=== PATIENT | male | born 1965 | race Hispanic/Latino ===

== ENCOUNTER 2016-05-08 12:39 | Emergency (ER) | payer MEDICAID ==
[2016-05-08 12:45] VITALS: BP 131/87; PULSE 76; RESP 16; TEMP 98; O2SAT 97
--- NOTE | 2016-05-08 13:28 | C.PDOC ---
History Of Present Illness Pt is here requesting detox from alcohol and heroin. Time Seen by Provider: 05/08/16 13:13 Chief Complaint (Nursing): Substance Abuse History Per: Patient Onset/Duration Of Symptoms: Days Current Symptoms Are (Timing): Still Present Suicide/Self Injury Attempted (Context): None Modifying Factor(s): Alcohol, Narcotics Severity: Moderate Associated Symptoms: denies: Suicidal Thoughts, Suicidal Plan Additional History Per: Prior Records Past Medical History Reviewed: Historical Data, Nursing Documentation, Vital Signs Vital Signs: Last Vital Signs Temp 98 F 05/08/16 12:42 Pulse 76 05/08/16 12:42 Resp 16 05/08/16 12:42 BP 131/87 05/08/16 12:42 Pulse Ox 97 05/08/16 12:42 - Medical History PMH: Anxiety (PT DENIES), Arthritis, Depression (PT DENIES), HTN - [facility] Procedures DETOXIFICATION SERVICES FOR SUBSTANCE ABUSE TREATMENT (04/22/16) INDIV PSYCHOTHERAPY FOR SUBSTANCE ABUSE TREATMENT, SUPPORT (04/22/16) INDIV PSYCHOTHERAPY FOR SUBSTANCE ABUSE, COGNITIV BEHAVIORAL (04/22/16) INDIV PSYCHOTHERAPY FOR SUBSTANCE ABUSE, PSYCHOEDUCATION (04/22/16) INJECT/INFUSE NEC (12/12/13) Family History: States: Unknown Family Hx - Social History Hx Tobacco Use: No Hx Alcohol Use: Yes Hx Substance Use: Yes (Snorts heroin) - Immunization History Hx Tetanus Toxoid Vaccination: No Hx Influenza Vaccination: No Hx Pneumococcal Vaccination: No Review Of Systems Except As Marked, All Systems Reviewed And Found Negative. Constitutional: Negative for: Fever, Weakness Cardiovascular: Negative for: Chest Pain Respiratory: Negative for: Shortness of Breath, Hemoptysis Gastrointestinal: Negative for: Vomiting, Abdominal Pain Musculoskeletal: Negative for: Neck Pain Neurological: Negative for: Weakness, Numbness, Seizures Psych: Negative for: Psychosis Physical Exam - Physical Exam Appears: Non-toxic, No Acute Distress Skin: Normal Color, Warm, Dry, No Rash Head: Atraumatic, Normacephalic Eye(s): bilateral: PERRL, EOMI Neck: Normal ROM, Supple Cardiovascular: Rhythm Regular Respiratory: Normal Breath Sounds, No Accessory Muscle Use Gastrointestinal/Abdominal: Soft, No Tenderness Extremity: Normal ROM, No Deformity Neurological/Psych: Oriented x3, Normal Motor, Normal Sensation Gait: Steady ED Course And Treatment O2 Sat by Pulse Oximetry: 97 Pulse Ox Interpretation: Normal Progress Note: I was informed by the dietary worker that there are no detox beds available today and that the pt for inpt detox due to recent detox admission. Disposition Counseled Patient/Family Regarding: Diagnosis, Need For Followup - Disposition Disposition: HOME/ ROUTINE Disposition Time: 13:28 Condition: STABLE Additional Instructions: Follow up with your doctor or in the clinic. Return to the ER if you develop worsening of symptoms or if you have any other concerns. Instructions: Abuse of Alcohol (ED), Narcotic Abuse (ED) - Clinical Impression Clinical Impression: Alcohol abuse, Heroin abuse
== END 2016-05-08 13:57 | disposition home or self-care (01) ==
LOC: C.ER 12:39
DX: F11.10 Opioid abuse, uncomplicated (principal); F10.10 Alcohol abuse, uncomplicated

== ENCOUNTER 2016-06-27 15:59 | Emergency (ER) | payer MEDICAID ==
[2016-06-27 16:06] VITALS: BP 126/84; PULSE 108; TEMP 98.3; O2SAT 92
--- NOTE | 2016-06-27 16:33 | C.PDOC ---
History Of Present Illness 50-year-old male BIBA for evaluation, was found in the street appearing to be under influence of drugs/alcohol. He was given intranasal Narcan in the field, and arrives to ED awake, alert. Patient admits to snorting heroin. He c/o mild nausea, but denies other complaints. Time Seen by Provider: 06/27/16 16:12 Chief Complaint (Nursing): Substance Abuse History Per: EMS History/Exam Limitations: intoxication Current Symptoms Are (Timing): Better Modifying Factor(s): Narcotics (heroin) Severity: Moderate Past Medical History Reviewed: Historical Data, Nursing Documentation, Vital Signs Vital Signs: Last Vital Signs Temp 98.3 F 06/27/16 16:02 Pulse 108 H 06/27/16 16:02 Resp 15 06/27/16 16:44 BP 126/84 06/27/16 16:02 Pulse Ox 92 L 06/27/16 17:19 - Medical History PMH: Anxiety (PT DENIES), Arthritis, Depression (PT DENIES), HTN - [facility] Procedures DETOXIFICATION SERVICES FOR SUBSTANCE ABUSE TREATMENT (04/22/16) INDIV PSYCHOTHERAPY FOR SUBSTANCE ABUSE TREATMENT, SUPPORT (04/22/16) INDIV PSYCHOTHERAPY FOR SUBSTANCE ABUSE, COGNITIV BEHAVIORAL (04/22/16) INDIV PSYCHOTHERAPY FOR SUBSTANCE ABUSE, PSYCHOEDUCATION (04/22/16) INJECT/INFUSE NEC (12/12/13) Family History: States: No Known Family Hx - Social History Hx Tobacco Use: No Hx Alcohol Use: Yes Hx Substance Use: Yes (Snorts heroin) - Immunization History Hx Tetanus Toxoid Vaccination: No Hx Influenza Vaccination: No Hx Pneumococcal Vaccination: No Review Of Systems Except As Marked, All Systems Reviewed And Found Negative. Constitutional: Negative for: Fever Cardiovascular: Negative for: Chest Pain, Palpitations Respiratory: Negative for: Shortness of Breath Gastrointestinal: Positive for: Nausea. Negative for: Vomiting Neurological: Negative for: Dizziness Psych: Positive for: Other (heroin abuse ) Physical Exam - Physical Exam Appears: Well, Non-toxic, No Acute Distress Skin: Warm, Dry, No Rash Head: Normacephalic Eye(s): bilateral: Normal Inspection, PERRL, EOMI Oral Mucosa: Moist Lips: Normal Appearing Neck: Normal ROM Cardiovascular: Rhythm Regular Respiratory: Normal Breath Sounds, No Rales, No Rhonchi, No Wheezing Extremity: Normal ROM Extremity: Bilateral: Atraumatic, Normal Color And Temperature, Normal ROM Neurological/Psych: Oriented x3 Gait: Steady ED Course And Treatment O2 Sat by Pulse Oximetry: 92 (RA) Pulse Ox Interpretation: Normal Progress Note: PO Zofran ODT ordered. Patient had 1 episode of vomiting (after Narcan). He refused Zofran. Reevaluation Time: 16:45 Reassessment Condition: Improved (Patient currently AAOx3, ambulating normaly in the ED. Patient clinically sober at this time, will discharge home.) Disposition Counseled Patient/Family Regarding: Diagnosis, Need For Followup - Disposition Referrals: [facility] [Outside] Disposition: HOME/ ROUTINE Disposition Time: 16:45 Condition: STABLE Additional Instructions: FOLLOW UP WITH YOUR DOCTOR/CLINIC IN 1-2 DAYS AVOID HEROIN AND ALCOHOL ABUSE RETURN TO ER IF YOU HAVE ANY CONCERNING SYMPTOMS Instructions: Narcotic Abuse (ED) Print Language: BAHAMIAN - POA Present On Arrival: None - Clinical Impression Clinical Impression: Heroin use - Scribe Statement The provider has reviewed the documentation as recorded by the Mellissaibimtiaz Abreu All medical record entries made by the Scribe were at my direction and personally dictated by me. I have reviewed the chart and agree that the record accurately reflects my personal performance of the history, physical exam, medical decision making, and the department course for this patient. I have also personally directed, reviewed, and agree with the discharge instructions and disposition.
[2016-06-27 16:45] VITALS: RESP 15
== END 2016-06-27 16:44 | disposition home or self-care (01) ==
LOC: C.ER 15:59
DX: F11.90 Opioid use, unspecified, uncomplicated (principal)

== ENCOUNTER 2016-07-25 12:13 | Emergency (ER) | payer MEDICAID ==
[2016-07-25] MEDS ORDERED: Sodium Chloride 0.9% 1,000 ML IV ONE (12:27)
[2016-07-25] MEDS ORDERED: Naloxone 0.4 mg/ml Inj (Adult) IV STA (12:27)
--- NOTE | 2016-07-25 13:08 | C.PDOC ---
History Of Present Illness 50 y/o male brought in by EMS found laying on street, likely overdose. Pt known to ED with heroin overdose in the past. Unable to obtain history due to patient condition. Time Seen by Provider: 07/25/16 12:26 Chief Complaint (Nursing): Altered Mental Status History Per: EMS History/Exam Limitations: Intoxication Onset/Duration Of Symptoms: Hrs Current Symptoms Are (Timing): Still Present Usual Baseline: Unknown Exacerbating Factor(s): Drug Use Use Of Anticoag/Antiplatelets: No Severity: Moderate Recent travel outside of the [place] States: No Past Medical History Reviewed: Historical Data, Nursing Documentation, Vital Signs Vital Signs: Last Vital Signs Temp 98.2 F 07/25/16 12:25 Pulse 82 07/25/16 12:50 Resp 18 07/25/16 12:50 BP 107/66 07/25/16 12:50 Pulse Ox 97 07/25/16 13:10 - Medical History PMH: Anxiety (PT DENIES), Arthritis, HTN - [facility] Procedures DETOXIFICATION SERVICES FOR SUBSTANCE ABUSE TREATMENT (04/22/16) INDIV PSYCHOTHERAPY FOR SUBSTANCE ABUSE TREATMENT, SUPPORT (04/22/16) INDIV PSYCHOTHERAPY FOR SUBSTANCE ABUSE, COGNITIV BEHAVIORAL (04/22/16) INDIV PSYCHOTHERAPY FOR SUBSTANCE ABUSE, PSYCHOEDUCATION (04/22/16) INJECT/INFUSE NEC (12/12/13) Family History: States: Unknown Family Hx - Social History Hx Tobacco Use: No Hx Alcohol Use: Yes Hx Substance Use: Yes (Snorts heroin) Review Of Systems Review Of Systems: ROS cannot be obtained secondary to pt's inabilty to answer questions. Physical Exam - Physical Exam Appears: Non-toxic, In Acute Distress Skin: Warm, Diaphoretic Head: Atraumatic, Normacephalic Eye(s): bilateral: Other (pinpoint) Neck: Supple Chest: Symmetrical Cardiovascular: Rhythm Regular, No Murmur Respiratory: No Rales, No Rhonchi, No Wheezing, Other (rate improved with stimulition ) Gastrointestinal/Abdominal: Normal Exam, Soft, No Tenderness Extremity: Normal ROM Extremity: Bilateral: Atraumatic Neurological/Psych: Other (no focal deficit) Pain Response: Withdraws With Pain ED Course And Treatment O2 Sat by Pulse Oximetry: 97 (room air) Pulse Ox Interpretation: Normal Progress Note: Breathing rate increases with chest wall stimulation. Treated with 0.2 Narcan with marked improvement in respirations and mental status. Medical Decision Making Medical Decision Making: Post narcan continued alert Pt observed 25 minutes before he eloped from ED. Disposition - Disposition Disposition: ELOPEMENT - ER ONLY Disposition Time: 00:00 Condition: UNKNOWN - Clinical Impression Clinical Impression: Heroin abuse, Narcotic overdose - Scribe Statement The provider has reviewed the documentation as recorded by the Isabel Spencer Provider Attestation: All medical record entries made by the Isabel were at my direction and personally dictated by me. I have reviewed the chart and agree that the record accurately reflects my personal performance of the history, physical exam, medical decision making, and the department course for this patient. I have also personally directed, reviewed, and agree with the discharge instructions and disposition.
[2016-07-25 13:13] VITALS: BP 107/66; PULSE 82; RESP 18; TEMP 98.2; O2SAT 97; BMI 23.9
== END 2016-07-25 13:00 | disposition left against medical advice (07) ==
LOC: C.ER 12:13
DX: T40.1X1D Poisoning by heroin, accidental (unintentional), subsequent encounter (principal); R41.82 Altered mental status, unspecified; F11.10 Opioid abuse, uncomplicated
CPT/HCPCS: 99285; J2310; J7040

== ENCOUNTER 2017-05-21 08:40 | Inpatient (IN) | payer OTHER, MEDICAID ==
[2017-05-21 08:40] VITALS: BMI 23.9
[2017-05-21 09:55] LABS: BASO % 0.5 % (0.0-2.0); EOS # 0.1 K/uL (0.0-0.7); EOS % 1.9 % (0.0-4.0); HEMOGLOBIN 14.4 g/dL (12.0-18.0); LYMPH # 1.7 K/uL (1.0-4.3); LYMPH % 22.8 % (20.0-40.0); MEAN CELL VOLUME 95.7 fL (80.0-94.0); MEAN CORPUSCULAR HEMOGLOBIN 33.2 pg (27.0-31.0); MEAN CORPUSCULAR HGB CONC 34.7 g/dL (33.0-37.0); MEAN PLATELET VOLUME 8.9 fL (7.2-11.7); MONO # 0.8 K/uL (0.0-0.8); MONO % 10.9 % (0.0-10.0); NEUT # 4.6 K/uL (1.8-7.0); NEUT % 63.9 % (50.0-75.0); RBC 4.34 Mil/uL (4.40-5.90); RED CELL DISTRIBUTION WIDTH 13.4 % (11.5-14.5); WHITE BLOOD COUNT 7.3 K/uL (4.8-10.8)
[2017-05-21 10:11] LABS: ALBUMIN 3.8 g/dL (3.5-5.0); BLOOD UREA NITROGEN 19 mg/dL (9-20); CALCIUM 9.2 mg/dl (8.6-10.4); GFR AFRICAN-AMERICAN > 60; GFR NON-AFRICAN AMERICAN > 60
[2017-05-21 10:12] LABS: ALT/SGPT 87 U/L (21-72); AST/SGOT 75 U/L (17-59)
--- NOTE | 2017-05-21 10:55 | C.PDOC ---
History Of Present Illness 51 y/o male with history of Hep C presents to ED requesting detox from Heroin and ETOH, complaints of hip pain for 4-5 weeks. Patient states he has history of hip fracture years ago and reports last substance use was 1:30 am. Patient denies history of withdrawal seizures and denies nausea, vomiting, chest pain or any other complaints at this time. Time Seen by Provider: 05/21/17 09:18 Chief Complaint (Nursing): Substance Abuse History Per: Patient History/Exam Limitations: no limitations Onset/Duration Of Symptoms: Days Current Symptoms Are (Timing): Still Present Suicide/Self Injury Attempted (Context): None Modifying Factor(s): Alcohol Past Medical History Reviewed: Historical Data, Nursing Documentation, Vital Signs Vital Signs: Last Vital Signs Temp 97.7 F 05/21/17 08:52 Pulse 62 05/21/17 08:52 Resp 18 05/21/17 08:52 BP 123/87 05/21/17 08:52 Pulse Ox 98 05/21/17 08:52 - Medical History PMH: Anxiety (PT DENIES), Arthritis, Depression (PT DENIES), Hepatitis (C) Surgical History: No Surg Hx - [facility] Procedures DETOXIFICATION SERVICES FOR SUBSTANCE ABUSE TREATMENT (04/22/16) INDIV PSYCHOTHERAPY FOR SUBSTANCE ABUSE TREATMENT, SUPPORT (04/22/16) INDIV PSYCHOTHERAPY FOR SUBSTANCE ABUSE, COGNITIV BEHAVIORAL (04/22/16) INDIV PSYCHOTHERAPY FOR SUBSTANCE ABUSE, PSYCHOEDUCATION (04/22/16) INJECT/INFUSE NEC (12/12/13) Family History: States: No Known Family Hx - Social History Hx Tobacco Use: No Hx Alcohol Use: Yes Hx Substance Use: Yes (Snorts heroin) - Immunization History Hx Tetanus Toxoid Vaccination: No Hx Influenza Vaccination: No Hx Pneumococcal Vaccination: No Review Of Systems Constitutional: Negative for: Fever, Chills ED Course And Treatment - Laboratory Results Result Diagrams: 05/21/17 09:50 05/21/17 09:50 O2 Sat by Pulse Oximetry: 98 Disposition - Disposition
--- NOTE | 2017-05-21 10:58 | C.PDOC ---
History Of Present Illness 51 y/o male with history of Hep C presents to ED requesting detox from Heroin and ETOH. Reports last substance use was 1:30 am. Patient denies history of withdrawal seizures. Denies abdominal pain, nausea, vomiting, chest pain or sob. Doesn't not take any chronic medication. Time Seen by Provider: 05/21/17 09:18 Chief Complaint (Nursing): Substance Abuse History Per: Patient History/Exam Limitations: no limitations Onset/Duration Of Symptoms: Days Current Symptoms Are (Timing): Still Present Suicide/Self Injury Attempted (Context): None Modifying Factor(s): Alcohol Past Medical History Reviewed: Historical Data, Nursing Documentation, Vital Signs Vital Signs: Last Vital Signs Temp 98.4 F 05/21/17 14:02 Pulse 64 05/21/17 14:02 Resp 18 05/21/17 14:02 BP 123/88 05/21/17 14:02 Pulse Ox 98 05/21/17 14:02 - Medical History PMH: Anxiety (PT DENIES), Arthritis, Depression (PT DENIES), Hepatitis (C) Surgical History: No Surg Hx - [facility] Procedures DETOXIFICATION SERVICES FOR SUBSTANCE ABUSE TREATMENT (04/22/16) INDIV PSYCHOTHERAPY FOR SUBSTANCE ABUSE TREATMENT, SUPPORT (04/22/16) INDIV PSYCHOTHERAPY FOR SUBSTANCE ABUSE, COGNITIV BEHAVIORAL (04/22/16) INDIV PSYCHOTHERAPY FOR SUBSTANCE ABUSE, PSYCHOEDUCATION (04/22/16) INJECT/INFUSE NEC (12/12/13) Family History: States: No Known Family Hx - Social History Hx Tobacco Use: No Hx Alcohol Use: Yes Hx Substance Use: Yes (Snorts heroin) - Immunization History Hx Tetanus Toxoid Vaccination: No Hx Influenza Vaccination: No Hx Pneumococcal Vaccination: No Review Of Systems Constitutional: Negative for: Fever, Chills Cardiovascular: Negative for: Chest Pain Respiratory: Negative for: Shortness of Breath Gastrointestinal: Negative for: Nausea, Vomiting Psych: Negative for: Suicidal ideation, Withdrawal Physical Exam - Physical Exam Appears: Non-toxic, No Acute Distress Skin: Warm, Dry, No Rash Head: Atraumatic, Normacephalic Eye(s): bilateral: Normal Inspection, EOMI Nose: Normal Oral Mucosa: Moist Neck: Normal ROM, Supple Chest: Symmetrical Cardiovascular: Rhythm Regular Respiratory: Normal Breath Sounds, No Rales, No Rhonchi, No Wheezing Gastrointestinal/Abdominal: Soft, No Tenderness, No Guarding, No Rebound Extremity: Normal ROM, Capillary Refill (<2 seconds) Neurological/Psych: Oriented x3, Normal Speech ED Course And Treatment - Laboratory Results Result Diagrams: 05/21/17 09:50 05/21/17 09:50 O2 Sat by Pulse Oximetry: 98 (RA) Pulse Ox Interpretation: Normal Progress Note: Pt seen and evaluted by tool maintenance worker who discussed case with Dr Garcia and agreed upon admission. Disposition - Disposition Disposition: HOSPITALIZED Disposition Time: 14:00 Condition: STABLE - Clinical Impression Clinical Impression: Alcohol abuse, Opioid dependence - PA / RATINGS ANALYST / Resident Statement MD/DO has reviewed & agrees with the documentation as recorded. - Scribe Statement The provider has reviewed the documentation as recorded by the Mellissaibimtiaz Wilson All medical record entries made by the Mellissaibimtiaz were at my direction and personally dictated by me. I have reviewed the chart and agree that the record accurately reflects my personal performance of the history, physical exam, medical decision making, and the department course for this patient. I have also personally directed, reviewed, and agree with the discharge instructions and disposition.
[2017-05-21 12:16] LABS: URINE BILIRUBIN NEGATIVE (NEGATIVE); URINE BLOOD NEGATIVE (NEGATIVE); URINE CLARITY Hazy (Clear); URINE COLOR Yellow (YELLOW); URINE GLUCOSE (UA) NORMAL (Normal); URINE LEUKOCYTE ESTERASE NEG Leu/uL (Negative); URINE PROTEIN NEGATIVE (NEGATIVE); URINE URIC ACID CRYSTALS RARE /hpf (<OCC); URINE UROBILINOGEN NORMAL mg/dL (0.2-1.0)
[2017-05-21 12:36] LABS: BARBITURATES, UR NEGATIVE (NEGATIVE); BENZODIAZEPINES, UR NEGATIVE (NEGATIVE); PHENCYCLIDINE, UR NEGATIVE (NEGATIVE)
[2017-05-21 13:15] LABS: OPIATES, UR POSITIVE (NEGATIVE)
--- NOTE | 2017-05-21 14:18 | PCM.BM ---
<Sj Lezama - Last Filed: 05/21/17 14:21> Treatment Plan Problems - Problems identified on initial assessmt potential for alcohol withdrawal Date Initiated: 05/21/17 Time Initiated: 14:24 Assessment reference: NA Status: Active potential for opiate withdrawal Date Initiated: 05/21/17 Time Initiated: 14:17 Assessment reference: NA Status: Active Treatment assets and liabiliti Patient Assests: cooperative, ADL independent, negotiates basic needs, cognitively intact Patient Liabilities: substance abuse, medical problems - Milieu Protocol Maintain good personal hygiene: daily Encourage regular showers, daily Remind patient to perform daily oral care, daily Assist patient to perform ADL's Conduct patient checks and document Observation sheet: Q15 minutes Maintain personal safety: every other day Educate patient to report safety concerns to staff, every other day Monitor environment for contraband/sharps Medication safety: Monitor for expected outcome, potential side effects: daily, Assess barriers to learning: daily, Assess readiness for medication education: every other day <Yary Garcia - Last Filed: 05/21/17 23:56> Treatment Plan Problems - Problems identified on initial assessmt potential for alcohol withdrawal Date Initiated: 05/21/17 Time Initiated: 14:24 Assessment reference: NA Status: Active potential for opiate withdrawal Date Initiated: 05/21/17 Time Initiated: 14:17 Assessment reference: NA Status: Active Problem 2 Date Initiated: 05/21/17 Time Initiated: 14:17 Assessment reference: NA Problem 1 Date Initiated: 05/21/17 Time Initiated: 14:20 Assessment reference: NA potential foe opiate withdrawal\\ Date Initiated: 05/21/17 Time Initiated: 14:17 Assessment reference: NA Status: Active - Diagnosis (1) Alcohol use disorder, severe, dependence Status: Acute Interventions: 05/21/17 23:56 * Assess 7x/week regarding severity of withdrawal * Educate regarding risks, benefits, side effects and alternatives of medications * Use Motivational Interviewing for abstinence * Use CBT for relapse prevention * Medication management for withdrawal symptoms * Encourage medication assisted treatment * (2) Opioid dependence Status: Acute Interventions: 05/21/17 23:56 * Assess 7x/week regarding severity of withdrawal * Educate regarding risks, benefits, side effects and alternatives of medications * Use Motivational Interviewing for abstinence * Use CBT for relapse prevention * Medication management for withdrawal symptoms * Encourage medication assisted treatment * Treatment Plan Review - Problem potential for alcohol withdrawal Time Initiated: 14:24 potential for opiate withdrawal Time Initiated: 14:17 Problem 2 Time Initiated: 14:17 Problem 1 Time Initiated: 14:20 potential foe opiate withdrawal\\ Time Initiated: 14:17 <Kaycee Rangel - Last Filed: 05/23/17 08:31> Family Contact Family involvement: No known Family/SO - Goals for Treatment Patient goals for treatment: Complete detox and discuss aftercare options with counseling staff. Discharge/Continuing Care - Education Needs Education Needs: Patient Medication, Patient Diagnosis/Disease Process, Patient Coping Skills, Patient Anger Management skills, Patient Placement options, Patient Community resources - Discharge Discharge Criteria: No longer exhibiting s/s of withdrawal, Reduction of target symptoms Discharge to:: Home - Treatment Team Participation Patient/Family/SO Statement: 05/23/17 08:30 "I'll consider my options but I don't know what I wanna do after this..." Discussed with Family/SO: No Was Patient/Family/SO present at Treatment Team Meeting: Yes
[2017-05-21] MEDS ORDERED: Pneumococcal 23-Valent Vaccine IM ONE (15:15)
--- NOTE | 2017-05-21 15:25 | PCM.PSYCH ---
Initial Psychiatric Evaluation - Initial Psychiatric Evaluation Type of Admission: Voluntary Legal Status: Capacity Chief Complaint (in patient's own words): "Heroin" History of Present Illness and Precipitating Events: The pt is a 51 y/o WM, single with one adult daughter, laid off recently, stays with his friends He says he is here for alcohol and heroin detox. He uses 15-20 bags heroin intranasally, x30+ years. He also drinks 4-5 beers but 24 oz each and 1/2 pint whiskey. He decreased but relapsed few weeks ago. He used methadone in the past, was in detox 4-5 times but no rehab He also uses cocaine and MJ occasionally, smokes 1 ppd cigarettes. Past psych hx: Denies Medical hx: Hep C, penil wart family psych hx: Unknown Current Medications: Active Medications Generic Name Dose Route Start Last Admin Trade Name Freq PRN Reason Stop Dose Admin Chlordiazepoxide 25 mg 05/21/17 15:10 Librium PO Q4H PRN Alcohol Withdrawal Chlordiazepoxide 25 mg 05/21/17 18:00 Librium PO 05/26/17 17:59 Q6 DIEGO Taper Clonidine HCl 0.1 mg 05/21/17 15:10 Catapres PO Q4H PRN Symptoms of alcohol withdrawl Folic Acid 1 mg 05/21/17 15:15 Folic Acid PO DAILY DIEGO Gabapentin 300 mg 05/21/17 18:00 Neurontin PO BID DIEGO Hydroxyzine HCl 50 mg 05/21/17 15:14 Atarax PO Q6H PRN Anxiety Ibuprofen 600 mg 05/21/17 15:14 Motrin Tab PO Q6H PRN Pain, moderate (4-7) Multivitamins 1 tab 05/21/17 15:15 Hexavitamin PO DAILY [facility] Pneumococcal Polyvalent Vaccine 0.5 ml 05/21/17 15:15 Pneumovax 23 Vaccine IM 05/21/17 15:16 .ONCE ONE Thiamine HCl 100 mg 05/21/17 15:15 Vitamin B1 Tab PO DAILY DIEGO Trazodone HCl 100 mg 05/21/17 15:10 Desyrel PO HS PRN Insomnia Past Psychiatric History - Past Psychiatric History Previous Treatment History: None Pertinent Medical Hx (Current Medical&Sleep Prob, Allergies): Allergies Allergy/AdvReac Type Severity Reaction Status Date / Time No Known Allergies Allergy Verified 04/22/17 19:29 No Known Home Med 05/08/16 Review of Systems - Psychiatric Psychiatric: Abnormal Sleep Pattern, Anxiety. absent: Depression, Homicidal Ideation, Paranoia, Suicidal Ideation Mental Status Examination - Personal Presentation Personal Presentation: Looks older than stated age - Affect Affect: Constricted - Motor Activity Motor Activity: Calm - Reliability in Providing Information Reliability in Providing Information: Good - Speech Speech: Organized - Mood Mood: Anxious - Formal Thought Process Formal Thought Process: No Impairment - Cognitive Functions Orientation: Person, Place, Situation, Time Attention/Concentration: Easily distracted Estimate of Intelligence: Average Judgement: Intact, as evidence by: Insight regarding need for hospitalization Memory: Recent intact, as evidence by: Ability to recall events of the day, Remote intact, as evidenced by: Abilit to recall sig. life events - Risk Risk: Withdrawal, Diminished functioning - Strength & Assets Inventory Strength & Assets Inventory: Cooperative - Limitations Limitations: Living alone DSM 5 DX - DSM 5 DSM 5 Diagnosis: Opioid withdrawal Opioid use d/o -severe Alcohol use d/o - severe Alcohol withdrawal uncmlicated Cocaine use d/o - moderate Cannabis use d/o - moderat Tobacco use d/o - severe - Recommended/Plan of Treatment Treatment Recommendations and Plan of Treatment: Methadone detox Librium detox As needed medications Gabapentin for augmentation if needed All risks, benefits and alternatives of medications, including no medications, discussed and the patient understood and agreed. Attend groups and activities Supportive therapy and psychoeducation [place] for abstinence CBT for relapse prevention Encourage MAT Refer to rehab or IOP Attend self-help groups as well [place] for smoking cessation and patch if needed 34 min Projected ELOS: 4-5 days Prognosis: good w treatment - Smoking Cessation Smoking Cessation Initiated: Yes
[2017-05-21] MEDS: Multiple Vitamins Tab PO SCH (15:54)
[2017-05-22] MEDS: Multiple Vitamins Tab PO SCH (10:09)
--- NOTE | 2017-05-22 15:10 | PCM.PYCHPN ---
Psychiatric Progress Note - Psychiatric Progress Note Patient seen today, length of contact: 15 min Patient Chief Complaint: "Not well" Problems Identified/Issues Discussed: The pt is seen, chart reviewed, case discussed with staff. Support given, CBT and [place] used briefly No new symptoms reported, improving slowly and needs more time No SEs from medications, risks discussed. After care discussed - he is undecided and somewhat unmotivated. He likes to badmouth about MAT Medication Change: Yes (detox changes daily) Medical Record Reviewed: Yes Mental Status Examination - Cognitive Function Orientation: Person, Place, Situation, Time Memory: Intact Attention: WNL Concentration: Poor Association: WNL Fund of Knowledge: WNL - Mood Mood: Anxious - Affect Affect: Constricted - Speech Speech: Appropriate - Formal Thought Process Formal Thought Process: No Impairment - Suicidal Ideation Suicidal Ideation: No - Homicidal Ideation Homicidal Ideation: No Goal/Treatment Plan - Goal/Treatment Plan Need for Continued Stay: Discharge may exacerbated symptoms, Severe functional impairment Progress Toward Problem(s) and Goals/Treatment Plan: Methadone detox Librium detox As needed medications Gabapentin for augmentation if needed All risks, benefits and alternatives of medications, including no medications, discussed and the patient understood and agreed. Attend groups and activities Supportive therapy and psychoeducation [place] for abstinence CBT for relapse prevention Encourage MAT Refer to rehab or IOP Attend self-help groups as well [place] for smoking cessation and patch if needed
[2017-05-23] MEDS: Multiple Vitamins Tab PO SCH (09:19)
[2017-05-23] MEDS ORDERED: Pneumococcal 23-Valent Vaccine IM ONE (10:00)
--- NOTE | 2017-05-23 13:47 | PCM.PYCHPN ---
Psychiatric Progress Note - Psychiatric Progress Note Patient seen today, length of contact: 15 min Patient Chief Complaint: "Still no good" Problems Identified/Issues Discussed: The pt is seen, chart reviewed, case discussed with staff. Support given, CBT and [place] used briefly No new symptoms reported, but he complains a lot w/o concrete sxs Improving slowly and needs more time.M Extra dose given No SEs from medications, risks discussed. After care discussed Medication Change: Yes (detox changes daily) Medical Record Reviewed: Yes Mental Status Examination - Cognitive Function Orientation: Person, Place, Situation, Time Memory: Intact Attention: WNL Concentration: Poor Association: WNL Fund of Knowledge: WNL - Mood Mood: Anxious - Affect Affect: Constricted - Speech Speech: Appropriate - Formal Thought Process Formal Thought Process: No Impairment - Suicidal Ideation Suicidal Ideation: No - Homicidal Ideation Homicidal Ideation: No Goal/Treatment Plan - Goal/Treatment Plan Need for Continued Stay: Discharge may exacerbated symptoms, Severe functional impairment Progress Toward Problem(s) and Goals/Treatment Plan: Methadone detox Librium detox As needed medications Gabapentin for augmentation if needed All risks, benefits and alternatives of medications, including no medications, discussed and the patient understood and agreed. Attend groups and activities Supportive therapy and psychoeducation [place] for abstinence CBT for relapse prevention Encourage MAT Refer to rehab or IOP Attend self-help groups as well [place] for smoking cessation and patch if needed
[2017-05-24] MEDS: Multiple Vitamins Tab PO SCH (09:36)
--- NOTE | 2017-05-24 22:13 | PCM.PYCHPN ---
Psychiatric Progress Note - Psychiatric Progress Note Patient seen today, length of contact: 16 min Patient Chief Complaint: "Some pain" Problems Identified/Issues Discussed: The pt is seen, chart reviewed, case discussed with staff. The pt is compliant with medications and reports no side-effects. Symptoms are improving slowly but needs more time to stabilize. After care discussed, support and psychoeducation given. Medication Change: Yes (detox changes daily) Medical Record Reviewed: Yes Mental Status Examination - Cognitive Function Orientation: Person, Place, Situation, Time Memory: Intact Attention: WNL Concentration: Poor Association: WNL Fund of Knowledge: WNL - Mood Mood: Anxious - Affect Affect: Constricted - Speech Speech: Appropriate - Formal Thought Process Formal Thought Process: No Impairment - Suicidal Ideation Suicidal Ideation: No - Homicidal Ideation Homicidal Ideation: No Goal/Treatment Plan - Goal/Treatment Plan Need for Continued Stay: Discharge may exacerbated symptoms, Severe functional impairment Progress Toward Problem(s) and Goals/Treatment Plan: Methadone detox Librium detox As needed medications Gabapentin for augmentation if needed All risks, benefits and alternatives of medications, including no medications, discussed and the patient understood and agreed. Attend groups and activities Supportive therapy and psychoeducation [place] for abstinence CBT for relapse prevention Encourage MAT Refer to rehab or IOP Attend self-help groups as well [place] for smoking cessation and patch if needed
[2017-05-25 02:43] VITALS: O2SAT 98
--- NOTE | 2017-05-25 08:41 | PCM.PYCHDC ---
Mental Status Examination - Mental Status Examination Orientation: Person Discharge Summary - Discharge Note Consultations:: List each consultation separately and include: 1. Reason for request. 2. Findings. 3. Follow-up Summary of Hospital Course include:: 1. Description of specific treatment plan utilized for patients during their course of treatmen. 2. Summarize the time- course for resolution of acute symptoms and/or regressed behaviors. 3. Describe issues identified and worked on during hospitalization. 4. Describe medication utilized. 5. Describe medical problems identified and treated. 6. Reassessment of suicide risk Summary of Hospital Course: The pt is a 51 y/o WM, single with one adult daughter, laid off recently, stays with his friends He says he is here for alcohol and heroin detox. He uses 15-20 bags heroin intranasally, x30+ years. He also drinks 4-5 beers but 24 oz each and 1/2 pint whiskey. He decreased but relapsed few weeks ago. He used methadone in the past, was in detox 4-5 times but no rehab He also uses cocaine and MJ occasionally, smokes 1 ppd cigarettes. Past psych hx: Denies Medical hx: Hep C, penil wart family psych hx: Unknown The pt was uncooperative and unmotivated. He only agreed to try "meetings," and all risks of poor after care discussed. - Diagnosis (1) Alcohol use disorder, severe, dependence Current Visit: Yes Status: Acute (2) Opioid dependence Current Visit: Yes Status: Acute - Final Diagnosis (DSM 5) Condition upon Discharge: STABLE Disposition: HOME/ ROUTINE Follow-up Treatment Plan: Methadone detox Librium detox As needed medications Gabapentin for augmentation if needed All risks, benefits and alternatives of medications, including no medications, discussed and the patient understood and agreed. Attend groups and activities Supportive therapy and psychoeducation [place] for abstinence CBT for relapse prevention Encourage MAT Refer to rehab or IOP Attend self-help groups as well [place] for smoking cessation and patch if needed Prescriptions/Medication Reconciliation: Gabapentin [Neurontin] 300 mg PO BID #60 cap hydrOXYzine HCl [Atarax] 50 mg PO BID PRN #60 tab PRN Reason: Anxiety QUEtiapine [SEROquel] 50 mg PO HS #30 tab
[2017-05-25] MEDS: Multiple Vitamins Tab PO SCH (09:32)
[2017-05-25 10:13] VITALS: BP 100/72; PULSE 96; RESP 20; TEMP 97.5
== END 2017-05-25 10:15 | disposition home or self-care (01) | DRG 897 ==
LOC: C.ER 08:40 → C.7D 13:39
PROVIDERS: ADMIT Psychiatry & Neurology Psychiatry; ATTEND Psychiatry & Neurology Psychiatry
PROC: HZ2ZZZZ Detoxification Services for Substance Abuse Treatment (ICD-10-PCS; principal; 2017-05-21)
DX: F11.23 Opioid dependence with withdrawal (principal); F14.90 Cocaine use, unspecified, uncomplicated; F10.239 Alcohol dependence with withdrawal, unspecified; Y90.9 Presence of alcohol in blood, level not specified; F12.90 Cannabis use, unspecified, uncomplicated; Z72.0 Tobacco use

== ENCOUNTER 2017-10-01 16:17 | Emergency (ER) | payer OTHER ==
[2017-10-01 16:18] VITALS: BMI 25.7
[2017-10-01 16:28] VITALS: BP 107/78; PULSE 87; RESP 16; TEMP 97.8; O2SAT 98
--- NOTE | 2017-10-01 16:48 | C.PDOC ---
History Of Present Illness 52 year old male presents to the ED requesting medication for heroin withdrawal. Patient states his last use was yesterday. Patient is currently asymptomatic. Patient denies SI/HI, hallucinations, injury, fall, trauma. REQUESTING RX FOR HEROIN WITHDRAWAL. LAST USE YEST. CURRENTLY ASYMPT EXAM MILD DIST NONTOXIC PSYCH CALM COOPERATIVE NO ACUTE INTOX. MILD WITHDRAWAL NO SI/SA REMAIDNER NEG Time Seen by Provider: 10/01/17 16:36 Chief Complaint (Nursing): Substance Abuse History Per: Patient History/Exam Limitations: no limitations Onset/Duration Of Symptoms: Hrs Current Symptoms Are (Timing): Still Present Suicide/Self Injury Attempted (Context): None Modifying Factor(s): Other (Heroin) Associated Symptoms: denies: Depression, Suicidal Thoughts, Suicidal Plan Recent travel outside of the [place]: No Additional History Per: Patient Past Medical History Reviewed: Historical Data, Nursing Documentation, Vital Signs Vital Signs: Last Vital Signs Temp 97.8 F 10/01/17 16:25 Pulse 87 10/01/17 16:25 Resp 16 10/01/17 16:25 BP 107/78 10/01/17 16:25 Pulse Ox 98 10/01/17 16:50 - Medical History PMH: Anxiety (PT DENIES), Arthritis, Depression (PT DENIES), Hepatitis (C) Denies: Diabetes, HIV, HTN, Seizures, Sexually Transmitted Disease Surgical History: No Surg Hx - [facility] Procedures DETOXIFICATION SERVICES FOR SUBSTANCE ABUSE TREATMENT (05/21/17) INDIV PSYCHOTHERAPY FOR SUBSTANCE ABUSE TREATMENT, SUPPORT (04/22/16) INDIV PSYCHOTHERAPY FOR SUBSTANCE ABUSE, COGNITIV BEHAVIORAL (04/22/16) INDIV PSYCHOTHERAPY FOR SUBSTANCE ABUSE, PSYCHOEDUCATION (04/22/16) INJECT/INFUSE NEC (12/12/13) Family History: States: Unknown Family Hx - Social History Hx Tobacco Use: No Hx Alcohol Use: Yes Hx Substance Use: Yes - Immunization History Hx Tetanus Toxoid Vaccination: No Hx Influenza Vaccination: No Hx Pneumococcal Vaccination: No Review Of Systems Constitutional: Negative for: Fever, Chills Cardiovascular: Negative for: Chest Pain Respiratory: Negative for: Cough, Shortness of Breath Gastrointestinal: Negative for: Nausea, Vomiting, Abdominal Pain Neurological: Negative for: Weakness, Numbness Psych: Negative for: Depression, Suicidal ideation Physical Exam - Physical Exam Appears: Non-toxic, In Acute Distress Skin: Normal Color, Warm, Dry Head: Atraumatic, Normacephalic Eye(s): bilateral: Normal Inspection Neck: Normal ROM, Supple Chest: Symmetrical Cardiovascular: Rhythm Regular Respiratory: Normal Breath Sounds, No Rales, No Rhonchi, No Wheezing Extremity: Normal ROM, No Tenderness, No Swelling Neurological/Psych: Oriented x3, Normal Speech, Other (calm, cooperative, no acute intoxication, mild withdrawal. 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 OUTPT INFO GIVEN Medical Decision Making Medical Decision Making: Plan: * Zofran 4 mg PO * Clonidine 2 patch TD Patient was told to remove patch after 1 week., Given outpatient detox information Disposition Counseled Patient/Family Regarding: Diagnosis, Need For Followup, Rx Given - Disposition Referrals: [facility] [Outside] [facility] [Outside] Disposition: HOME/ ROUTINE Disposition Time: 16:44 Condition: IMPROVED Prescriptions: Acetaminophen [Tylenol Extra Strength] 2 tab PO Q6 #30 tablet Ibuprofen [Motrin] 600 mg PO Q6 #30 tab Ondansetron [Zofran Odt] 4 mg PO TID PRN #9 odt PRN Reason: Nausea/Vomiting Instructions: Drug Abuse and Drug Addiction (DC) Forms: [employer] (Lithuanian) - Clinical Impression Clinical Impression: Opioid abuse, Opioid dependence, Opiate withdrawal - Scribe Statement The provider has reviewed the documentation as recorded by the Scribe Shimon Martin All medical record entries made by the Scribe were at my direction and personally dictated by me. I have reviewed the chart and agree that the record accurately reflects my personal performance of the history, physical exam, medical decision making, and the department course for this patient. I have also personally directed, reviewed, and agree with the discharge instructions and disposition.
== END 2017-10-01 17:07 | disposition home or self-care (01) ==
LOC: C.ER 16:17
DX: F11.23 Opioid dependence with withdrawal (principal)

== ENCOUNTER 2017-10-09 04:40 | Inpatient (IN) | payer OTHER ==
[2017-10-09 04:41] VITALS: BMI 25.7
--- NOTE | 2017-10-09 04:55 | C.PDOC ---
History Of Present Illness 52 year old male presents to the ED for evaluation of feeling depressed. Patient had expressed some thoughts about hurting himself. Patient also using heroin and states he has not used in the last couple of hours. Patient denies SI /HI, hallucinations, CP, SOB, other complaints. Time Seen by Provider: 10/09/17 04:55 Chief Complaint (Nursing): Psychiatric Evaluation History Per: Patient History/Exam Limitations: no limitations Onset/Duration Of Symptoms: Hrs Current Symptoms Are (Timing): Still Present Suicide/Self Injury Attempted (Context): None Modifying Factor(s): Other (Heroin) Associated Symptoms: Depression. denies: Suicidal Thoughts, Suicidal Plan Recent travel outside of the [place]: No Additional History Per: Patient Past Medical History Reviewed: Historical Data, Nursing Documentation, Vital Signs Vital Signs: Last Vital Signs Temp 98.5 F 10/09/17 04:49 Pulse 60 10/09/17 04:49 Resp 20 10/09/17 04:49 BP 111/74 10/09/17 04:49 Pulse Ox 97 10/09/17 05:35 - Medical History PMH: Anxiety, Arthritis, Depression, Hepatitis (C), HIV Denies: Diabetes, HTN, Seizures, Sexually Transmitted Disease Surgical History: No Surg Hx - [facility] Procedures DETOXIFICATION SERVICES FOR SUBSTANCE ABUSE TREATMENT (05/21/17) INDIV PSYCHOTHERAPY FOR SUBSTANCE ABUSE TREATMENT, SUPPORT (04/22/16) INDIV PSYCHOTHERAPY FOR SUBSTANCE ABUSE, COGNITIV BEHAVIORAL (04/22/16) INDIV PSYCHOTHERAPY FOR SUBSTANCE ABUSE, PSYCHOEDUCATION (04/22/16) INJECT/INFUSE NEC (12/12/13) Family History: States: Unknown Family Hx - Social History Hx Tobacco Use: No Hx Alcohol Use: Yes Hx Substance Use: Yes - Immunization History Hx Tetanus Toxoid Vaccination: No Hx Influenza Vaccination: No Hx Pneumococcal Vaccination: No Review Of Systems Constitutional: Negative for: Fever, Chills Cardiovascular: Negative for: Chest Pain Respiratory: Negative for: Shortness of Breath Gastrointestinal: Negative for: Nausea, Vomiting, Abdominal Pain Skin: Negative for: Rash Psych: Positive for: Depression. Negative for: Suicidal ideation Physical Exam - Physical Exam Appears: Non-toxic, No Acute Distress Skin: Warm, Dry Head: Normacephalic Eye(s): bilateral: Normal Inspection Neck: Supple Chest: Symmetrical Cardiovascular: Rhythm Regular Respiratory: No Rales, No Rhonchi, No Wheezing Gastrointestinal/Abdominal: Soft, No Tenderness, No Guarding, No Rebound Extremity: No Tenderness, No Swelling Extremity: Bilateral: Atraumatic, Normal Color And Temperature, Normal ROM Neurological/Psych: Oriented x3, Normal Speech Gait: Steady ED Course And Treatment - Laboratory Results Result Diagrams: 10/09/17 05:26 10/09/17 05:26 O2 Sat by Pulse Oximetry: 97 (ON RA) Pulse Ox Interpretation: Normal Progress Note: Plan: - Labs. - Ua. - Crisis Disposition Discussed With Dr.: Suzie Marsh Comment: accepted the pt on his service and took over the care at 6:27AM Doctor Will See Patient In The: Hospital Counseled Patient/Family Regarding: Studies Performed, Diagnosis - Disposition Disposition: HOSPITALIZED Disposition Time: 04:55 Condition: FAIR Forms: [facility] (Swedish) - POA Present On Arrival: Poor Glycemic Control - Clinical Impression Clinical Impression: Opioid abuse - Scribe Statement The provider has reviewed the documentation as recorded by the Scribe Shimon Martin All medical record entries made by the Scribe were at my direction and personally dictated by me. I have reviewed the chart and agree that the record accurately reflects my personal performance of the history, physical exam, medical decision making, and the department course for this patient. I have also personally directed, reviewed, and agree with the discharge instructions and disposition. Decision To Admit - Pt Status Changed To: Hospital Disposition Of: Inpatient - Admit Certification Admit to Inpatient:: After my assessment, the patient will require hospitalization for at least two midnights. This is because of the severity of symptoms shown, intensity of services needed, and/or the medical risk in this patient being treated as an outpatient. - InPatient: Physician Admission Certification: I certify that this patient requires 2 or more midnights of care for the following reason:: After my assessment, the patient will require hospitalization for at least two midnights. This is because of the severity of symptoms shown, intensity of services needed, and/or the medical risk in this patient being treated as an outpatient. - . Bed Request Type: Detox Admitting Physician: Suzie Marsh Patient Diagnosis: Opioid abuse
[2017-10-09 05:39] LABS: BASO % 0.8 % (0.0-2.0); EOS # 0.2 K/uL (0.0-0.7); EOS % 3.5 % (0.0-4.0); HEMOGLOBIN 14.4 g/dL (12.0-18.0); MEAN CELL VOLUME 94.1 fL (80.0-94.0); MEAN CORPUSCULAR HEMOGLOBIN 32.3 pg (27.0-31.0); MEAN CORPUSCULAR HGB CONC 34.3 g/dL (33.0-37.0); MEAN PLATELET VOLUME 9.6 fL (7.2-11.7); MONO # 0.6 K/uL (0.0-0.8); MONO % 10.4 % (0.0-10.0); NEUT # 2.9 K/uL (1.8-7.0); NEUT % 50.3 % (50.0-75.0); NRBC % 0.1 % (0.0-2.0); RBC 4.46 Mil/uL (4.40-5.90); RED CELL DISTRIBUTION WIDTH 13.7 % (11.5-14.5); WHITE BLOOD COUNT 5.8 K/uL (4.8-10.8)
[2017-10-09 05:54] LABS: URINE BILIRUBIN NEGATIVE (NEGATIVE); URINE BLOOD NEGATIVE (NEGATIVE); URINE CLARITY Clear (Clear); URINE COLOR Yellow (YELLOW); URINE GLUCOSE (UA) NORMAL (Normal); URINE LEUKOCYTE ESTERASE NEG Leu/uL (Negative); URINE PROTEIN NEGATIVE (NEGATIVE)
[2017-10-09 05:57] LABS: ALB/GLOB RATIO 1.2 (1.0-2.1); ALBUMIN 3.9 g/dL (3.5-5.0); ALT/SGPT 140 U/L (21-72); AST/SGOT 114 U/L (17-59); BLOOD UREA NITROGEN 6 mg/dL (9-20); CALCIUM 9.5 mg/dl (8.6-10.4); GFR NON-AFRICAN AMERICAN > 60
[2017-10-09 06:06] LABS: BARBITURATES, UR NEGATIVE (NEGATIVE); PHENCYCLIDINE, UR NEGATIVE (NEGATIVE)
[2017-10-09 06:12] LABS: BENZODIAZEPINES, UR POSITIVE (NEGATIVE); OPIATES, UR POSITIVE (NEGATIVE)
--- NOTE | 2017-10-09 07:42 | PCM.BM ---
<Samira Medrano - Last Filed: 10/09/17 07:40> Treatment Plan Problems - Problems identified on initial assessmt potential for opiate withdrawals Date Initiated: 10/09/17 Assessment reference: NA Status: Active potential for alcohol withdrawals Date Initiated: 10/09/17 Assessment reference: NA Status: Active Treatment assets and liabiliti Patient Assests: cooperative, motivated, ADL independent, negotiates basic needs , cognitively intact Patient Liabilities: financial problems, substance abuse - Milieu Protocol Maintain good personal hygiene: daily Encourage regular showers, daily Remind patient to perform daily oral care, daily Assist patient to perform ADL's Conduct patient checks and document Observation sheet: Q15 minutes Maintain personal safety: every shift Educate patient to report safety concerns to staff, every shift Monitor environment for contraband/sharps Medication safety: Monitor for expected outcome, potential side effects: every shift, Assess barriers to learning: every shift, Assess readiness for medication education: every shift <Yary Garcia - Last Filed: 10/09/17 10:35> - Diagnosis (1) Alcohol use disorder, severe, dependence Status: Acute Interventions: 10/09/17 10:36 * Assess 7x/week regarding severity of withdrawal * Educate regarding risks, benefits, side effects and alternatives of medications * Use Motivational Interviewing for abstinence * Use CBT for relapse prevention * Medication management for withdrawal symptoms * Encourage medication assisted treatment * (2) Opioid dependence Status: Acute Interventions: 10/09/17 10:36 * Assess 7x/week regarding severity of withdrawal * Educate regarding risks, benefits, side effects and alternatives of medications * Use Motivational Interviewing for abstinence * Use CBT for relapse prevention * Medication management for withdrawal symptoms * Encourage medication assisted treatment * <Kaycee Rangel - Last Filed: 10/09/17 10:59> Family Contact Family involvement: Famliy/SO not involved - Goals for Treatment Patient goals for treatment: Complete detox and discuss aftercare options with counseling staff, Discharge/Continuing Care - Education Needs Education Needs: Patient Medication, Patient Diagnosis/Disease Process, Patient Coping Skills, Patient Anger Management skills, Patient Placement options, Patient Community resources - Discharge Discharge Criteria: No longer exhibiting s/s of withdrawal, Reduction of target symptoms Discharge to:: Other - Additional Comments 10/09/17 10:59 TBD aftercare. Pt. unsure at this point. - Treatment Team Participation Discussed with Family/SO: No Was Patient/Family/SO present at Treatment Team Meeting: Yes
[2017-10-09] MEDS ORDERED: Aluminum Hydroxide/Magnesium Hydroxide Susp (30 mL) PO PRN (08:43)
[2017-10-09] MEDS: Multiple Vitamins Tab PO SCH (09:06)
--- NOTE | 2017-10-09 10:35 | PCM.PSYCH ---
Initial Psychiatric Evaluation - Initial Psychiatric Evaluation Type of Admission: Voluntary Legal Status: Capacity Chief Complaint (in patient's own words): "Need detox, need to stop this" History of Present Illness and Precipitating Events: Pt is a 52 year old, male. He is single, has a daughter, and lives with 2 roommates in [place]. 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 Chart reviewed. Case discussed. Pt is presenting for opioid and EtOH detoxification. He states that he snorts 15 -20 bags of heroin. The last time he used heroin was yesterday morning. He has been using heroin since he was 17 years old. He underwent detoxification for this in May. Upon leaving he maintained sobriety for a week but relapsed. He did not go to any rehab because he said he had no desire for it, then. For EtOH abuse, he drinks between 2-6 packs of beers/day, and he has a bottle of whiskey few times per week on average. The last time he drank beer was yesterday. He has been drinking alcohol since around the age of 13. He also underwent detoxification before at the same time as opioid detoxification, and maintained sobriety only for a week. Pt is more ambivalent about alcohol. He smokes cigarettes, about 1 pack/day. He denies marijuana or other drugs. Pt reports feeling persistent headaches, cough nausea, vomiting, diarrhea, and widespread body aches. Denies fever, LOC, dizziness, chest pain, SOB, constipation, and numbness, tingling, or abnormal sensation. Psych Hx: He denies any manic episodes. He denies hearing voices. He denies SI/ HI. He denies any traumatic history. Family Psych Hx: Unremarkable Medical Hx: Unremarkable Legal Hx: Unremarkable Current Medications: Active Medications Generic Name Dose Route Start Last Admin Trade Name Freq PRN Reason Stop Dose Admin Al Hydrox/Mg Hydrox/Simethicone 30 ml 10/09/17 08:43 Maalox 30 Ml PO TID PRN Indigestion / Heartburn Clonidine HCl 0.1 mg 10/09/17 08:42 Catapres PO Q4H PRN Symptoms of alcohol withdrawl Folic Acid 1 mg 10/09/17 10:00 10/09/17 09:06 Folic Acid PO 1 mg DAILY DIEGO Administration Loperamide HCl 2 mg 10/09/17 08:43 Imodium PO Q8 PRN Diarrhea Lorazepam 1 mg 10/09/17 08:42 Ativan PO Q4H PRN Symptoms of alcohol withdrawl Lorazepam 2 mg 10/09/17 10:00 10/09/17 10:21 Ativan PO 10/14/17 09:59 2 mg Q6H DIEGO Administration Taper Multivitamins 1 tab 10/09/17 10:00 10/09/17 09:06 Hexavitamin PO 1 tab DAILY DIEGO Administration Ondansetron HCl 4 mg 10/09/17 08:43 Zofran Tab PO Q8 PRN Nausea/Vomiting Thiamine HCl 100 mg 10/09/17 10:00 10/09/17 09:06 Vitamin B1 Tab PO 100 mg DAILY DIEGO Administration Trazodone HCl 50 mg 10/09/17 22:00 Desyrel PO HS PRN Insomnia Past Psychiatric History - Past Psychiatric History Previous Treatment History: None Pertinent Medical Hx (Current Medical&Sleep Prob, Allergies): Allergies Allergy/AdvReac Type Severity Reaction Status Date / Time No Known Allergies Allergy Verified 10/09/17 04:52 No Known Home Med 10/09/17 Review of Systems - Psychiatric Psychiatric: Abnormal Sleep Pattern, Anxiety, Difficulty Concentrating, Irritability, Mood Swings. absent: Hallucinations, Homicidal Ideation, Paranoia , Suicidal Ideation Mental Status Examination - Personal Presentation Personal Presentation: Looks older than stated age - Affect Affect: Constricted - Motor Activity Motor Activity: Calm - Reliability in Providing Information Reliability in Providing Information: Good - Speech Speech: Organized - Mood Mood: Anxious - Formal Thought Process Formal Thought Process: No Impairment - Cognitive Functions Orientation: Person, Place, Situation, Time Sensorium: Alert Attention/Concentration: Easily distracted Estimate of Intelligence: Average Judgement: Intact, as evidence by: Insight regarding need for hospitalization Memory: Recent intact, as evidence by: Ability to recall events of the day, Remote intact, as evidenced by: Ability to recall historical events - Risk Risk: Withdrawal, Diminished functioning - Strength & Assets Inventory Strength & Assets Inventory: Cooperative - Limitations Limitations: Living alone DSM 5 DX - DSM 5 DSM 5 Diagnosis: Opioid withdrawal Opioid use d/o - severe Alcohol use d/o - severe, with withdrawal - Recommended/Plan of Treatment Treatment Recommendations and Plan of Treatment: Taper with methadone for opioids, Ativan for EtOH Gabapentin for augmentation if needed As needed medications All risks, benefits and alternatives of the meds discussed, and the pt agreed and understood. Attend groups and activities Supportive therapy and psychoeducation [place] for abstinence CBT for relapse prevention Encourage MAT Refer to rehab or IOP, and self-help groups Smoking cessation with DC Nicotine patch if needed 33 min Projected ELOS: 4-5 days Prognosis: good w treatment - Smoking Cessation Smoking Cessation Initiated: Yes
[2017-10-10] MEDS: Multiple Vitamins Tab PO SCH (09:36)
--- NOTE | 2017-10-10 14:21 | PCM.PYCHPN ---
Psychiatric Progress Note - Psychiatric Progress Note Patient seen today, length of contact: 16 min Patient Chief Complaint: "Not well" Problems Identified/Issues Discussed: The pt is seen, chart reviewed, case discussed with staff. Support and psychoeducation given, CBT and [place] used briefly No new symptoms reported, improving slowly and needs more time No SEs from medications, risks discussed. After care discussed Medication Change: Yes (detox changes daily) Medical Record Reviewed: Yes Mental Status Examination - Cognitive Function Orientation: Person, Place, Situation, Time Memory: Intact Attention: WNL Concentration: Poor Association: WNL Fund of Knowledge: WNL - Mood Mood: Anxious - Affect Affect: Constricted - Speech Speech: Appropriate - Formal Thought Process Formal Thought Process: No Impairment - Suicidal Ideation Suicidal Ideation: No - Homicidal Ideation Homicidal Ideation: No Goal/Treatment Plan - Goal/Treatment Plan Need for Continued Stay: Discharge may exacerbated symptoms, Severe functional impairment Progress Toward Problem(s) and Goals/Treatment Plan: Taper with methadone for opioids, Ativan for EtOH Gabapentin for augmentation if needed As needed medications All risks, benefits and alternatives of the meds discussed, and the pt agreed and understood. Attend groups and activities Supportive therapy and psychoeducation [place] for abstinence CBT for relapse prevention Encourage MAT Refer to rehab or IOP, and self-help groups Smoking cessation with [place] Nicotine patch if needed
[2017-10-11] MEDS: Multiple Vitamins Tab PO SCH (09:51)
[2017-10-12 06:42] VITALS: TEMP 98.6; O2SAT 99
--- NOTE | 2017-10-12 08:44 | PCM.PYCHDC ---
Mental Status Examination - Mental Status Examination Orientation: Person Discharge Summary - Discharge Note Consultations:: List each consultation separately and include: 1. Reason for request. 2. Findings. 3. Follow-up Summary of Hospital Course include:: 1. Description of specific treatment plan utilized for patients during their course of treatmen. 2. Summarize the time- course for resolution of acute symptoms and/or regressed behaviors. 3. Describe issues identified and worked on during hospitalization. 4. Describe medication utilized. 5. Describe medical problems identified and treated. 6. Reassessment of suicide risk Summary of Hospital Course: Pt is a 52 year old, male. He is single, has a daughter, and lives with 2 roommates in [place]. 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 Chart reviewed. Case discussed. Pt is presenting for opioid and EtOH detoxification. He states that he snorts 15 -20 bags of heroin. The last time he used heroin was yesterday morning. He has been using heroin since he was 17 years old. He underwent detoxification for this in May. Upon leaving he maintained sobriety for a week but relapsed. He did not go to any rehab because he said he had no desire for it, then. For EtOH abuse, he drinks between 2-6 packs of beers/day, and he has a bottle of whiskey few times per week on average. The last time he drank beer was yesterday. He has been drinking alcohol since around the age of 13. He also underwent detoxification before at the same time as opioid detoxification, and maintained sobriety only for a week. Pt is more ambivalent about alcohol. He smokes cigarettes, about 1 pack/day. He denies marijuana or other drugs. Pt reports feeling persistent headaches, cough nausea, vomiting, diarrhea, and widespread body aches. Denies fever, LOC, dizziness, chest pain, SOB, constipation, and numbness, tingling, or abnormal sensation. Psych Hx: He denies any manic episodes. He denies hearing voices. He denies SI/ HI. He denies any traumatic history. Family Psych Hx: Unremarkable Medical Hx: Unremarkable Legal Hx: Unremarkable [facility] - Diagnosis (1) Alcohol use disorder, severe, dependence Current Visit: No Status: Acute (2) Opioid dependence Current Visit: No Status: Acute - Final Diagnosis (DSM 5) Condition upon Discharge: FAIR Disposition: HOME/ ROUTINE Follow-up Treatment Plan: Taper with methadone for opioids, Ativan for EtOH Gabapentin for augmentation if needed As needed medications All risks, benefits and alternatives of the meds discussed, and the pt agreed and understood. Attend groups and activities Supportive therapy and psychoeducation [place] for abstinence CBT for relapse prevention Encourage MAT Refer to rehab or IOP, and self-help groups Smoking cessation with [place] Nicotine patch if needed 33 min Prescriptions/Medication Reconciliation: traZODone [Desyrel] 50 mg PO HS PRN #30 tab PRN Reason: Insomnia
--- NOTE | 2017-10-12 08:45 | PCM.PYCHPN ---
Psychiatric Progress Note - Psychiatric Progress Note Patient seen today, length of contact: 17 min Patient Chief Complaint: "better" Problems Identified/Issues Discussed: The pt is seen, chart reviewed, case discussed with staff. The pt is compliant with medications and reports no side-effects. Symptoms are improving but needs more time to stabilize. Pt attends groups and activities. Support given, psycho-education provided. After care discussed - he is evasive Medication Change: Yes (detox changes daily) Medical Record Reviewed: Yes Mental Status Examination - Cognitive Function Orientation: Person, Place, Situation, Time Memory: Intact Attention: WNL Concentration: Poor Association: WNL Fund of Knowledge: WNL - Mood Mood: Anxious - Affect Affect: Constricted - Speech Speech: Appropriate - Formal Thought Process Formal Thought Process: No Impairment - Suicidal Ideation Suicidal Ideation: No - Homicidal Ideation Homicidal Ideation: No Goal/Treatment Plan - Goal/Treatment Plan Need for Continued Stay: Discharge may exacerbated symptoms, Severe functional impairment Progress Toward Problem(s) and Goals/Treatment Plan: Taper with methadone for opioids, Ativan for EtOH Gabapentin for augmentation if needed As needed medications All risks, benefits and alternatives of the meds discussed, and the pt agreed and understood. Attend groups and activities Supportive therapy and psychoeducation [place] for abstinence CBT for relapse prevention Encourage MAT Refer to rehab or IOP, and self-help groups Smoking cessation with [place] Nicotine patch if needed Estimated Date of D/C: 10/12/17
[2017-10-12 09:22] VITALS: BP 117/78; PULSE 51; RESP 18
[2017-10-12] MEDS: Multiple Vitamins Tab PO SCH (09:45)
== END 2017-10-12 13:15 | disposition home or self-care (01) | DRG 745 ==
LOC: C.ER 04:40 → C.9E 06:26 → C.7D 06:36
PROVIDERS: ADMIT Psychiatry & Neurology Psychiatry; ATTEND Psychiatry & Neurology Psychiatry
PROC: HZ2ZZZZ Detoxification Services for Substance Abuse Treatment (ICD-10-PCS; principal; 2017-10-09)
DX: F11.23 Opioid dependence with withdrawal (principal); F10.239 Alcohol dependence with withdrawal, unspecified; F17.210 Nicotine dependence, cigarettes, uncomplicated

== ENCOUNTER 2017-12-12 14:42 | Inpatient (IN) | payer OTHER ==
[2017-12-12 14:46] VITALS: BMI 28.9
--- NOTE | 2017-12-12 15:35 | C.PDOC ---
History Of Present Illness 52 year old male with PMHx of Hepatitis C (untreated), heroin use disorder and alcohol use disorder presents to ED complaining of suicidal ideation since yesterday. States he is having thoughts of hurting himself due to withdrawal fr om heroin. His plan is to dennis a dealer and overdose on heroin. He last used heroin at 9am yesterday, snorted 8 bags, however he usually uses 25-30 bags daily. Patient also reports drinking 5-6 24ounce beers daily. Patient is complaining of anxiety, tremulousness, abdominal cramping, soft stools, nausea and joint pains. Patient denies fever, chest pain, vomiting, shortness of breath, auditory or visual hallucinations. He has been through detox 4 times and has never been to rehab. <So Mcdonough - Last Filed: 12/12/17 15:24> <So Mcdonough - Last Filed: 12/12/17 15:24> <Alexandria Chopra - Last Filed: 12/12/17 16:17> Time Seen by Provider: 12/12/17 15:15 Chief Complaint (Nursing): Psychiatric Evaluation Past Medical History Vital Signs: Last Vital Signs Temp 98.1 F 12/12/17 14:45 Pulse 90 12/12/17 14:45 Resp 18 12/12/17 14:45 BP 118/85 12/12/17 14:45 Pulse Ox 96 12/12/17 14:45 - Medical History PMH: Anxiety, Arthritis, Depression, Hepatitis (C (untreated)), HIV Denies: Diabetes, HTN, Seizures, Sexually Transmitted Disease - [facility] Procedures DETOXIFICATION SERVICES FOR SUBSTANCE ABUSE TREATMENT (10/09/17) INDIV PSYCHOTHERAPY FOR SUBSTANCE ABUSE TREATMENT, SUPPORT (04/22/16) INDIV PSYCHOTHERAPY FOR SUBSTANCE ABUSE, COGNITIV BEHAVIORAL (04/22/16) INDIV PSYCHOTHERAPY FOR SUBSTANCE ABUSE, PSYCHOEDUCATION (04/22/16) INJECT/INFUSE NEC (12/12/13) Family History: States: Unknown Family Hx - Social History Hx Tobacco Use: No (1ppd) Hx Alcohol Use: Yes (5-6 24ounce beers daily) Hx Substance Use: Yes (25-30 bags heroin daily (snort)) - Immunization History Hx Tetanus Toxoid Vaccination: No Hx Influenza Vaccination: No Hx Pneumococcal Vaccination: No <So Mcdonough P - Last Filed: 12/12/17 15:24> Vital Signs: Last Vital Signs Temp 98.1 F 12/12/17 14:45 Pulse 90 12/12/17 14:45 Resp 18 12/12/17 14:45 BP 118/85 12/12/17 14:45 Pulse Ox 96 12/12/17 15:42 - [facility] Procedures DETOXIFICATION SERVICES FOR SUBSTANCE ABUSE TREATMENT (10/09/17) INDIV PSYCHOTHERAPY FOR SUBSTANCE ABUSE TREATMENT, SUPPORT (04/22/16) INDIV PSYCHOTHERAPY FOR SUBSTANCE ABUSE, COGNITIV BEHAVIORAL (04/22/16) INDIV PSYCHOTHERAPY FOR SUBSTANCE ABUSE, PSYCHOEDUCATION (04/22/16) INJECT/INFUSE NEC (12/12/13) <Alexandria Chopra - Last Filed: 12/12/17 16:17> Review Of Systems Constitutional: Positive for: Chills. Negative for: Fever, Sweats Cardiovascular: Negative for: Chest Pain, Palpitations Respiratory: Negative for: Cough, Shortness of Breath, Hemoptysis Gastrointestinal: Positive for: Nausea, Diarrhea. Negative for: Vomiting, Abdominal Pain, Constipation Genitourinary: Negative for: Dysuria, Frequency, Incontinence Musculoskeletal: Positive for: Other (joint pain) Neurological: Negative for: Weakness, Numbness, Incoordination, Confusion, Dizziness Psych: Positive for: Anxiety, Withdrawal <So Mcdonough P - Last Filed: 12/12/17 15:24> Physical Exam - Physical Exam Appears: Non-toxic, No Acute Distress Skin: Normal Color, Warm, Dry, Other (no piloerection noted) Head: Atraumatic, Normacephalic Eye(s): bilateral: Normal Inspection, PERRL, EOMI Nose: Normal, No Flaring, No Discharge Oral Mucosa: Moist Neck: Normal, Normal ROM Cardiovascular: No Rhythm Regular, No Rhythm Irregular, No Edema, No Friction Rub, No Murmur, No JVD Respiratory: Normal Breath Sounds, No Decreased Breath Sounds, No Accessory Muscle Use, No Rales, No Rhonchi, No Wheezing Gastrointestinal/Abdominal: Normal Exam, Bowel Sounds, Soft, No Tenderness, No Guarding, No Rebound Extremity: Normal ROM, No Tenderness, No Pedal Edema, No Calf Tenderness, Capillary Refill (normal), No Swelling Pulses: Left Dorsalis Pedis: Normal, Right Dorsalis Pedis: Normal Neurological/Psych: Oriented x3, Normal Speech, Normal Cranial Nerves, No Cerebellar Signs, Normal Motor <So Mcdonough P - Last Filed: 12/12/17 15:24> ED Course And Treatment O2 Sat by Pulse Oximetry: 96 <So Mcdonough P - Last Filed: 12/12/17 15:24> - Laboratory Results Result Diagrams: 12/12/17 15:39 12/12/17 15:39 Lab Interpretation: No Acute Changes Progress Note: Patient is medically cleared for detox admission. <Alexandria Chopra - Last Filed: 12/12/17 16:17> Medical Decision Making Medical Decision Making: Plan: -Alcohol level -UDS -CBC -CMP -Mg -Phos -UA -Crisis evaluaton <So Mcdonough P - Last Filed: 12/12/17 15:24> Disposition <Mcdonough,So P - Last Filed: 12/12/17 15:24> - Disposition Disposition Time: 16:16 - POA Present On Arrival: None <Alexandria Chopra - Last Filed: 12/12/17 16:17> - Disposition Disposition: HOSPITALIZED Condition: STABLE - Clinical Impression Clinical Impression: Opioid dependence
[2017-12-12 15:52] LABS: BASO % 0.8 % (0.0-2.0); EOS # 0.1 K/uL (0.0-0.7); EOS % 0.9 % (0.0-4.0); HEMOGLOBIN 14.9 g/dL (12.0-18.0); LYMPH # 1.5 K/uL (1.0-4.3); LYMPH % 26.2 % (20.0-40.0); MEAN CELL VOLUME 95.3 fL (80.0-94.0); MEAN CORPUSCULAR HEMOGLOBIN 32.6 pg (27.0-31.0); MEAN CORPUSCULAR HGB CONC 34.2 g/dL (33.0-37.0); MEAN PLATELET VOLUME 10.1 fL (7.2-11.7); MONO # 0.6 K/uL (0.0-0.8); MONO % 10.4 % (0.0-10.0); NEUT # 3.6 K/uL (1.8-7.0); NEUT % 61.7 % (50.0-75.0); RBC 4.58 Mil/uL (4.40-5.90); RED CELL DISTRIBUTION WIDTH 12.6 % (11.5-14.5); WHITE BLOOD COUNT 5.9 K/uL (4.8-10.8)
[2017-12-12 15:54] LABS: SQUAMOUS EPITHIAL < 1 /hpf (0-5); URINE BACTERIA OCC (<OCC); URINE BILIRUBIN NEGATIVE (NEGATIVE); URINE BLOOD NEGATIVE (NEGATIVE); URINE CLARITY Hazy (Clear); URINE COLOR Amber (YELLOW); URINE GLUCOSE (UA) NORMAL (Normal); URINE LEUKOCYTE ESTERASE NEG Leu/uL (Negative); URINE PROTEIN NEGATIVE (NEGATIVE)
[2017-12-12 16:10] LABS: ALB/GLOB RATIO 1.4 (1.0-2.1); ALBUMIN 4.5 g/dL (3.5-5.0); ALT/SGPT 133 U/L (21-72); AST/SGOT 128 U/L (17-59); BLOOD UREA NITROGEN 10 mg/dL (9-20); CALCIUM 10.2 mg/dl (8.6-10.4); GFR NON-AFRICAN AMERICAN > 60
[2017-12-12 16:11] LABS: BARBITURATES, UR NEGATIVE (NEGATIVE); BENZODIAZEPINES, UR NEGATIVE (NEGATIVE); PHENCYCLIDINE, UR NEGATIVE (NEGATIVE)
[2017-12-12 16:19] LABS: OPIATES, UR POSITIVE (NEGATIVE)
--- NOTE | 2017-12-12 17:02 | PCM.BM ---
Treatment Plan Problems - Problems identified on initial assessmt potiential for autonomic instability related to alcohol abuse Date Initiated: 12/12/17 Time Initiated: 17:02 Assessment reference: NA Status: Active potiential for opiate withdrawal Date Initiated: 12/12/17 Time Initiated: 17:02 Assessment reference: NA Status: Active Treatment assets and liabiliti Patient Assests: cooperative, motivated, ADL independent, negotiates basic needs, cognitively intact Patient Liabilities: physical pain, substance abuse, medical problems, legal issue - Milieu Protocol Maintain good personal hygiene: daily Encourage regular showers, daily Remind patient to perform daily oral care, daily Assist patient to perform ADL's, every shift Encourage regular showers, every shift Remind patient to perform daily oral care, every shift Assist patient to perform ADL's Maintain personal safety: every shift Educate patient to report safety concerns to staff, every shift Monitor environment for contraband/sharps Medication safety: Monitor for expected outcome, potential side effects: every shift, Assess barriers to learning: every shift, Assess readiness for medication education: every shift
[2017-12-12] MEDS ORDERED: Aluminum Hydroxide/Magnesium Hydroxide Susp (30 mL) PO PRN (22:09)
--- NOTE | 2017-12-13 12:00 | PCM.PSYCH ---
Initial Psychiatric Evaluation - Initial Psychiatric Evaluation Type of Admission: Voluntary Legal Status: Capacity Chief Complaint (in patient's own words): "I'm withdrawing" History of Present Illness and Precipitating Events: He is seen, chart reviewed, and case discussed. He is known from previous admissions. He is a 52 year old male who is single and with no children. 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 He snorts 25-30 bags of heroin a day. He began using at 17 years old and it has been regular ever since. He smokes 1 pack of cigarettes a day and drinks 6 x 24oz bottles of beer every day. He denies use of cocaine, marijuana, benzodiazepines, or any other substances. He has never been to a rehabilitation center before but has been to this detoxification program 4 times in the past. His last visit was in September in which he finished the detoxification but remained clean for 2 weeks. He denies any event that initiated the relapse. He denies any hospitalizations for psychiatric conditions. His plan after this program is to enter a rehabilitation center. Past Medical History: Hepatitis C untreated Allergies: Denies Family History: Denies Psychiatric History: Denies Surgical History: Denies Legal History: Denies Current Medications: Active Medications Generic Name Dose Route Start Last Admin Trade Name Freq PRN Reason Stop Dose Admin Al Hydrox/Mg Hydrox/Simethicone 30 ml 12/12/17 22:09 Maalox 30 Ml PO TID PRN Indigestion / Heartburn Clonidine HCl 0.1 mg 12/12/17 22:09 Catapres PO Q8 PRN COWS Score More or Equal to 5 Hydroxyzine HCl 50 mg 12/12/17 22:10 Atarax PO Q6H PRN Anxiety Ibuprofen 600 mg 12/12/17 22:10 Motrin Tab PO Q6H PRN Insomnia Loperamide HCl 2 mg 12/12/17 22:09 Imodium PO Q8 PRN Diarrhea Lorazepam 1 mg 12/12/17 17:53 12/12/17 21:05 Ativan PO 1 mg Q4 PRN Administration alcohol withdrawal Methadone HCl 20 mg 12/13/17 10:00 12/13/17 09:42 Methadone PO 12/17/17 09:59 20 mg Q24H DIEGO Administration Taper Ondansetron HCl 4 mg 12/12/17 22:09 Zofran Tab PO Q8 PRN Nausea/Vomiting Trazodone HCl 50 mg 12/12/17 20:58 Desyrel PO HS PRN insomnia Past Psychiatric History - Past Psychiatric History Pertinent Medical Hx (Current Medical&Sleep Prob, Allergies): Allergies Allergy/AdvReac Type Severity Reaction Status Date / Time No Known Allergies Allergy Verified 12/12/17 14:45 No Known Home Med 12/12/17 DSM 5 DX - DSM 5 DSM 5 Diagnosis: Opioid withdrawal Opioid use d/o, severe Alcohol withdrawal Alcohol use d/o severe Tobacco use d/o severe - Recommended/Plan of Treatment Treatment Recommendations and Plan of Treatment: Taper with methadone Observe alcohol wdw and treat as needed Gabapentin for augmentation if needed As needed medications All risks, benefits and alternatives of the meds discussed, and the pt agreed and understood. Attend groups and activities Supportive therapy and psychoeducation [place] for abstinence CBT for relapse prevention Encourage MAT Refer to rehab or IOP, and self-help groups Teach healthy lifestyle methods, i.e. diet, exercise, meditation Smoking cessation with [place] Nicotine patch if needed 34 min Projected ELOS: 4 days - Smoking Cessation Smoking Cessation Initiated: Yes
[2017-12-14 11:09] VITALS: BP 126/87; PULSE 64; RESP 18; TEMP 97.7; O2SAT 98
--- NOTE | 2017-12-14 12:09 | PCM.PYCHDC ---
Mental Status Examination - Mental Status Examination Orientation: Person, Place, Situation, Time Memory: Intact Mood: Anxious Affect: Broad Speech: Appropriate Attention: WNL Concentration: WNL Association: WNL Fund of Knowledge: WNL Formal Thought Process: No Impairment Suicidal Ideation: No Current Homicidal Ideation?: No Discharge Summary - Discharge Note Reason for Hospitalization: Opioid detox Consultations:: List each consultation separately and include: 1. Reason for request. 2. Findings. 3. Follow-up Summary of Hospital Course include:: 1. Description of specific treatment plan utilized for patients during their course of treatmen. 2. Summarize the time- course for resolution of acute symptoms and/or regressed behaviors. 3. Describe issues identified and worked on during hospitalization. 4. Describe medication utilized. 5. Describe medical problems identified and treated. 6. Reassessment of suicide risk Summary of Hospital Course: On Admission: He is seen, chart reviewed, and case discussed. He is known from previous admissions. He is a 52 year old male who is single and with no children. 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 He snorts 25-30 bags of heroin a day. He began using at 17 years old and it has been regular ever since. He smokes 1 pack of cigarettes a day and drinks 6 x 24oz bottles of beer every day. He denies use of cocaine, marijuana, benzodiazepines, or any other substances. He has never been to a rehabilitation center before but has been to this detoxification program 4 times in the past. His last visit was in September in which he finished the detoxification but remained clean for 2 weeks. He denies any event that initiated the relapse. He denies any hospitalizations for psychiatric conditions. His plan after this program is to enter a rehabilitation center. Past Medical History: Hepatitis C untreated Allergies: Denies Family History: Denies Psychiatric History: Denies Surgical History: Denies Legal History: Denies Hospital course: The pt was admitted and started on treatment with psychotherapy, support, psychoeducation and medications. DC and CBT used. The pt attended groups and activities, as well as milieu therapy. All the risks and benefits of medications are discussed and the patient understood and agreed. He woke up the next day and said he had to leave b/c of he heard that his dog got sick Risks of leaving AMA discussed and he understood but still left. He was unmotivated before that too. - Final Diagnosis (DSM 5) Condition upon Discharge: STABLE DSM 5: Opioid withdrawal Opioid use d/o, severe Alcohol withdrawal Alcohol use d/o severe Tobacco use d/o severe Disposition: AGAINST MEDICAL ADVICE Follow-up Treatment Plan: Return to ER or call 911 if suicidal, homicidal or symptoms relapse. Stay away from stress, alcohol and drugs. See primary doctor regularly and get labs.
== END 2017-12-14 12:15 | disposition left against medical advice (07) | DRG 770 ==
LOC: C.ER 14:42 → C.7D 16:43
PROVIDERS: ADMIT Psychiatry & Neurology Psychiatry; ATTEND Psychiatry & Neurology Psychiatry
PROC: HZ2ZZZZ Detoxification Services for Substance Abuse Treatment (ICD-10-PCS; principal; 2017-12-12)
PROC: HZ81ZZZ Medication Management for Substance Abuse Treatment, Methadone Maintenance (ICD-10-PCS; 2017-12-12)
PROC: HZ80ZZZ Medication Management for Substance Abuse Treatment, Nicotine Replacement (ICD-10-PCS; 2017-12-12)
PROC: GZ3ZZZZ Medication Management (ICD-10-PCS; 2017-12-12)
PROC: HZ46ZZZ Group Counseling for Substance Abuse Treatment, Psychoeducation (ICD-10-PCS; 2017-12-12)
PROC: HZ59ZZZ Individual Psychotherapy for Substance Abuse Treatment, Supportive (ICD-10-PCS; 2017-12-12)
DX: F11.23 Opioid dependence with withdrawal (principal); B19.20 Unspecified viral hepatitis C without hepatic coma; R45.851 Suicidal ideations; F10.239 Alcohol dependence with withdrawal, unspecified; F17.210 Nicotine dependence, cigarettes, uncomplicated; F41.9 Anxiety disorder, unspecified

== ENCOUNTER 2017-12-28 20:33 | Emergency (ER) | payer OTHER ==
[2017-12-28 20:34] VITALS: BMI 28.9
[2017-12-28 20:44] VITALS: BP 112/77; PULSE 77; RESP 18; TEMP 98.5; O2SAT 100
--- NOTE | 2017-12-28 22:39 | C.PDOC ---
History Of Present Illness 52 year old male presents to the ED c/o right groin area pain s/p slip and fall yesterday on the snow. Patient states he slipped on the snow which caused him to overstretch his right leg. Patient reports having history of "hip fracture in the 90s", however patient unsure which side. Patient reports pain worsens with ambulation, is requesting crutches. Patient denies LOC, other injury, fall, trauma, abdominal pain, rash, weakness, numbness. Time Seen by Provider: 12/28/17 20:45 Chief Complaint (Nursing): Lower Extremity Problem/Injury History Per: Patient History/Exam Limitations: no limitations Onset/Duration Of Symptoms: Days (1) Current Symptoms Are (Timing): Still Present Additional History Per: Patient - Hip Description Of Injury: Fell Past Medical History Reviewed: Historical Data, Nursing Documentation, Vital Signs Vital Signs: Last Vital Signs Temp 98.5 F 12/28/17 20:39 Pulse 77 12/28/17 20:39 Resp 18 12/28/17 20:39 BP 112/77 12/28/17 20:39 Pulse Ox 100 12/28/17 20:39 - Medical History PMH: Anxiety, Arthritis, Depression, Hepatitis (C (untreated)) Denies: Diabetes, HIV, HTN, Seizures, Sexually Transmitted Disease Surgical History: No Surg Hx - [facility] Procedures DETOXIFICATION SERVICES FOR SUBSTANCE ABUSE TREATMENT (12/12/17) GROUP [employer] M[employer] SET UP OPERATOR FOR SUBSTANCE ABUSE TREATMENT, PSYCHOEDUCATION (12/12/17) INDIV PSYCHOTHERAPY FOR SUBSTANCE ABUSE TREATMENT, SUPPORT (12/12/17) INDIV PSYCHOTHERAPY FOR SUBSTANCE ABUSE, COGNITIV BEHAVIORAL (04/22/16) INDIV PSYCHOTHERAPY FOR SUBSTANCE ABUSE, PSYCHOEDUCATION (04/22/16) INJECT/INFUSE NEC (12/12/13) MEDICATION MANAGEMENT (12/12/17) MEDS MGMT FOR SUBSTANCE ABUSE TREATMENT, METHADONE MAINT (12/12/17) MEDS MGMT FOR SUBSTANCE ABUSE TREATMENT, NICOTINE REPLACE (12/12/17) Family History: States: Unknown Family Hx - Social History Hx Tobacco Use: No (1ppd) Hx Alcohol Use: Yes Hx Substance Use: Yes - Immunization History Hx Tetanus Toxoid Vaccination: No Hx Influenza Vaccination: No Hx Pneumococcal Vaccination: No Review Of Systems Constitutional: Negative for: Fever, Chills Cardiovascular: Negative for: Chest Pain Respiratory: Negative for: Cough, Shortness of Breath Gastrointestinal: Negative for: Nausea, Vomiting, Abdominal Pain Musculoskeletal: Positive for: Leg Pain Skin: Negative for: Rash Neurological: Negative for: Weakness, Numbness Physical Exam - Physical Exam Appears: Non-toxic, No Acute Distress Skin: Normal Color, Warm, Dry Head: Atraumatic, Normacephalic Eye(s): bilateral: Normal Inspection Neck: Normal ROM, Supple Chest: Symmetrical Cardiovascular: Rhythm Regular Respiratory: Normal Breath Sounds Gastrointestinal/Abdominal: Soft, No Tenderness Male Genital: Inguinal Tenderness (right. No bulgingm ecchymosis) Extremity: Normal ROM (right leg causes pain), No Tenderness, Capillary Refill (< 2 seconds), No Swelling Extremity: Bilateral: Normal Color And Temperature Pulses: Left Dorsalis Pedis: Normal, Right Dorsalis Pedis: Normal Neurological/Psych: Oriented x3, Normal Speech, Normal Motor, Normal Sensation Gait: Other (with pain) ED Course And Treatment O2 Sat by Pulse Oximetry: 100 (ON RA) Pulse Ox Interpretation: Normal - Other Rad Right Hip X-Ray X-Ray: Interpreted by Me, Viewed By Me Interpretation: No fracture or dislocation Progress Note: Plan: - [facility] hip X-Ray. Patient refused pain medications, is strongly requesting crutches. Patient is informed that crutches are not indicated and due to weather outside risk of fall and injuries will increase wiht the use of crutches on ice or wet ground. Patient understands and fully accepts the risk still requsting crutches. Patient was given instructions and crutches to use for support. Disposition - Disposition Referrals: Non [facility] Provider, [Primary Care Provider] - Disposition: HOME/ ROUTINE Disposition Time: 22:26 Condition: STABLE Additional Instructions: Please follow up in clinic Take motrin or advil for pain Return to ER if worse Instructions: Groin Strain (DC) Forms: [email or web address] ([place]wana) - Clinical Impression Clinical Impression: Groin strain - PA / RENEWALS SPECIALIST / Resident Statement MD/DO has reviewed & agrees with the documentation as recorded. - Scribe Statement The provider has reviewed the documentation as recorded by the Scribe Shimon Martin All medical record entries made by the Scribe were at my direction and personally dictated by me. I have reviewed the chart and agree that the record accurately reflects my personal performance of the history, physical exam, medical decision making, and the department course for this patient. I have also personally directed, reviewed, and agree with the discharge instructions and disposition.
--- NOTE | 2017-12-29 07:04 | RAD ---
Pelvis and right hip two views History: Pain. Comparison: None available. Findings: Mild narrowing of the right hip joint space with subchondral sclerosis and mild osteophytosis. No evidence of acute displaced fracture or dislocation. Limited evaluation of the remainder of the bony pelvis demonstrates mild degenerative changes of the left hip joint space with subchondral sclerosis and osteophytosis. Mild sclerosis of the pubic symphysis. Impression: Mild degenerative changes. If pain persists, consider MRI.
== END 2017-12-28 22:29 | disposition home or self-care (01) ==
LOC: C.ER 20:33 → SUPCPDRO 20:33 → C.ER 22:29
DX: S39.011A Strain of muscle, fascia and tendon of abdomen, initial encounter (principal); W00.0XXA Fall on same level due to ice and snow, initial encounter; Y92.9 Unspecified place or not applicable

== ENCOUNTER 2018-01-05 09:27 | Inpatient (IN) | payer MEDICAID, OTHER ==
[2018-01-05 09:27] VITALS: BMI 28.9
--- NOTE | 2018-01-05 10:37 | C.PDOC ---
History Of Present Illness 52 years old male with PMHx of substance abuse presents to ED for complaints of feeling depressed, suicidal ideation with plan to overdose on heroin. Patient states he snorts heroin and last use was today. Patient also states he slipped in snow few days ago and has mild groin pain. Denies headache, fever, chills, nausea, vomiting, HI, or any other complaints. Time Seen by Provider: 01/05/18 10:10 Chief Complaint (Nursing): Psychiatric Evaluation History Per: Patient History/Exam Limitations: no limitations Onset/Duration Of Symptoms: Hrs Current Symptoms Are (Timing): Still Present Suicide/Self Injury Attempted (Context): None Modifying Factor(s): Narcotics (Heroin ) Associated Symptoms: Depression, Suicidal Thoughts, Suicidal Plan Involuntary Hold By: None Recent travel outside of the [place]: No Past Medical History Reviewed: Historical Data, Nursing Documentation, Vital Signs Vital Signs: Last Vital Signs Temp 97.7 F 01/05/18 09:41 Pulse 82 01/05/18 09:41 Resp 18 01/05/18 09:41 BP 136/88 01/05/18 09:41 Pulse Ox 98 01/05/18 09:41 - Medical History PMH: Anxiety, Arthritis, Depression, Hepatitis (C (untreated)) - [facility] DETOXIFICATION SERVICES FOR SUBSTANCE ABUSE TREATMENT (12/12/17) GROUP FIRE SYSTEMS INSPECTOR FOR SUBSTANCE ABUSE TREATMENT, PSYCHOEDUCATION (12/12/17) INDIV PSYCHOTHERAPY FOR SUBSTANCE ABUSE TREATMENT, SUPPORT (12/12/17) INDIV PSYCHOTHERAPY FOR SUBSTANCE ABUSE, COGNITIV BEHAVIORAL (04/22/16) INDIV PSYCHOTHERAPY FOR SUBSTANCE ABUSE, PSYCHOEDUCATION (04/22/16) INJECT/INFUSE NEC (12/12/13) MEDICATION MANAGEMENT (12/12/17) MEDS MGMT FOR SUBSTANCE ABUSE TREATMENT, METHADONE MAINT (12/12/17) MEDS MGMT FOR SUBSTANCE ABUSE TREATMENT, NICOTINE REPLACE (12/12/17) Family History: States: Unknown Family Hx - Social History Hx Tobacco Use: No (1ppd) Hx Alcohol Use: Yes Hx Substance Use: Yes - Immunization History Hx Tetanus Toxoid Vaccination: No Hx Influenza Vaccination: No Hx Pneumococcal Vaccination: No Review Of Systems Constitutional: Negative for: Fever, Chills Gastrointestinal: Negative for: Nausea, Vomiting, Diarrhea Skin: Negative for: Rash Neurological: Negative for: Weakness, Numbness, Headache Psych: Positive for: Depression, Suicidal ideation Physical Exam - Physical Exam Appears: Non-toxic, No Acute Distress Skin: Normal Color, Warm, Dry, No Rash Head: Atraumatic, Normacephalic Eye(s): bilateral: Normal Inspection, PERRL, EOMI Oral Mucosa: Moist Neck: Normal ROM, Supple Chest: Symmetrical, No Tenderness Cardiovascular: Rhythm Regular Respiratory: Normal Breath Sounds, No Rales, No Rhonchi, No Wheezing Gastrointestinal/Abdominal: Soft, No Tenderness Extremity: Normal ROM, Tenderness (Right groin area) Extremity: Bilateral: Normal Color And Temperature, Normal ROM Pulses: Left Radial: Normal, Right Radial: Normal Neurological/Psych: Oriented x3, Normal Speech Gait: Steady ED Course And Treatment - Laboratory Results Result Diagrams: 01/05/18 11:15 01/05/18 11:15 O2 Sat by Pulse Oximetry: 98 (RA) Pulse Ox Interpretation: Normal Medical Decision Making Medical Decision Making: Plan: * Blood work * Urinalysis * Crisis notified Disposition Counseled Patient/Family Regarding: Diagnosis - Disposition Disposition: HOSPITALIZED Disposition Time: 12:21 Condition: STABLE Forms: [facility] (Puerto Rican) - POA Present On Arrival: None - Clinical Impression Clinical Impression: Moderate major depression, single episode - Scribe Statement The provider has reviewed the documentation as recorded by the Scribimtiaz Leroy All medical record entries made by the Scribe were at my direction and pe rsonally dictated by me. I have reviewed the chart and agree that the record accurately reflects my personal performance of the history, physical exam, medical decision making, and the department course for this patient. I have also personally directed, reviewed, and agree with the discharge instructions and disposition. Decision To Admit - Pt Status Changed To: Hospital Disposition Of: Inpatient - Admit Certification Admit to Inpatient:: After my assessment, the patient will require hospitalization for at least two midnights. This is because of the severity of symptoms shown, intensity of services needed, and/or the medical risk in this patient being treated as an outpatient. - InPatient: Physician Admission Certification: I certify that this patient requires 2 or more midnights of care for the following reason:: needs inpatient psych - . Bed Request Type: Psychiatry Admitting Physician: Keyshawn Sutton Patient Diagnosis: Moderate major depression, single episode
[2018-01-05 11:26] LABS: BASO # 0.1 K/uL (0.0-0.2); BASO % 0.9 % (0.0-2.0); EOS # 0.1 K/uL (0.0-0.7); EOS % 1.3 % (0.0-4.0); HEMOGLOBIN 14.4 g/dL (12.0-18.0); LYMPH # 2.7 K/uL (1.0-4.3); LYMPH % 28.4 % (20.0-40.0); MEAN CELL VOLUME 94.8 fL (80.0-94.0); MEAN CORPUSCULAR HEMOGLOBIN 32.5 pg (27.0-31.0); MEAN CORPUSCULAR HGB CONC 34.3 g/dL (33.0-37.0); MEAN PLATELET VOLUME 9.1 fL (7.2-11.7); MONO % 10.5 % (0.0-10.0); NEUT # 5.6 K/uL (1.8-7.0); NEUT % 58.9 % (50.0-75.0); NRBC % 0.1 % (0.0-2.0); RBC 4.44 Mil/uL (4.40-5.90); RED CELL DISTRIBUTION WIDTH 12.7 % (11.5-14.5); WHITE BLOOD COUNT 9.5 K/uL (4.8-10.8)
[2018-01-05 11:32] LABS: SQUAMOUS EPITHIAL < 1 /hpf (0-5); URINE BILIRUBIN NEGATIVE (NEGATIVE); URINE BLOOD NEGATIVE (NEGATIVE); URINE CLARITY Clear (Clear); URINE COLOR Yellow (YELLOW); URINE GLUCOSE (UA) NORMAL (Normal); URINE LEUKOCYTE ESTERASE NEG Leu/uL (Negative); URINE PROTEIN NEGATIVE (NEGATIVE); URINE UROBILINOGEN NORMAL mg/dL (0.2-1.0)
[2018-01-05 11:41] LABS: BARBITURATES, UR NEGATIVE (NEGATIVE); PHENCYCLIDINE, UR NEGATIVE (NEGATIVE)
[2018-01-05 11:47] LABS: ALB/GLOB RATIO 1.1 (1.0-2.1); ALBUMIN 4.3 g/dL (3.5-5.0); ALT/SGPT 114 U/L (21-72); AST/SGOT 134 U/L (17-59); BENZODIAZEPINES, UR POSITIVE (NEGATIVE); BLOOD UREA NITROGEN 15 mg/dL (9-20); CALCIUM 9.4 mg/dl (8.6-10.4); GFR NON-AFRICAN AMERICAN > 60; OPIATES, UR POSITIVE (NEGATIVE)
[2018-01-05 12:23] VITALS: O2SAT 98
[2018-01-05] MEDS ORDERED: Pneumococcal 23-Valent Vaccine IM ONE (13:51)
--- NOTE | 2018-01-05 14:38 | PCM.BM ---
<Kell Mccormick - Last Filed: 01/05/18 14:36> Treatment Plan Problems - Problems identified on initial assessmt substance abuse Date Initiated: 01/05/18 Time Initiated: 14:36 Assessment reference: NA Status: Active Treatment assets and liabiliti Patient Assests: cooperative, motivated, ADL independent, negotiates basic needs, cognitively intact Patient Liabilities: relationship conflicts, substance abuse, medical problems - Milieu Protocol Maintain good personal hygiene: daily Encourage regular showers, daily Remind patient to perform daily oral care, daily Assist patient to perform ADL's Conduct patient checks and document Observation sheet: Q15 minutes Maintain personal safety: every shift Educate patient to report safety concerns to staff, every shift Monitor environment for contraband/sharps Medication safety: Monitor for expected outcome, potential side effects: every shift, Assess barriers to learning: every shift, Assess readiness for medication education: every shift <Debo Lazo - Last Filed: 01/07/18 11:24> Family Contact Family involvement: Famliy/SO not involved - Goals for Treatment Patient goals for treatment: "I don't know." Discharge/Continuing Care - Education Needs Education Needs: Patient Medication, Patient Coping Skills, Patient Placement options, Patient Community resources - Discharge Discharge Criteria: Tolerates medication w/o severe side effects, No longer exhibiting s/s of withdrawal, Reduction of target symptoms Discharge to:: Home - Treatment Team Participation Discussed with Family/SO: No Was Patient/Family/SO present at Treatment Team Meeting: Yes <Keyshawn Sutton - Last Filed: 01/07/18 14:26> - Diagnosis (1) Major depressive disorder, recurrent severe without psychotic features Status: Acute Interventions: 01/07/18 14:25 * Assess/adjust medications daily and /or as needed * See patient on an individual basis 7x/week to assess status of hallucinations * Discuss risks, benefits, side effects and alternatives of medications (2) Opioid use disorder, severe, dependence Status: Acute Interventions: 01/07/18 14:25 * Assess 7x/week regarding severity of withdrawal * Educate regarding risks, benefits, side effects and alternatives of medications * Use Motivational Interviewing for abstinence * Use CBT for relapse prevention * Medication management for withdrawal symptoms * Encourage medication assisted treatment (3) Alcohol use disorder, severe, dependence Status: Acute Interventions: 01/07/18 14:26 * Assess 7x/week regarding severity of withdrawal * Educate regarding risks, benefits, side effects and alternatives of medications * Use Motivational Interviewing for abstinence * Use CBT for relapse prevention * Medication management for withdrawal symptoms * Encourage medication assisted treatment (4) Tobacco use disorder, severe, dependence Status: Chronic Interventions: 01/07/18 14:26 * Assess 7x/week regarding severity of withdrawal * Educate regarding risks, benefits, side effects and alternatives of medications * Use Motivational Interviewing for abstinence * Use CBT for relapse prevention * Medication management for withdrawal symptoms * Encourage medication assisted treatment
[2018-01-05] MEDS ORDERED: Aluminum Hydroxide/Magnesium Hydroxide Susp (30 mL) PO PRN (17:16)
--- NOTE | 2018-01-06 10:57 | PCM.PSYCH ---
Initial Psychiatric Evaluation - Initial Psychiatric Evaluation Type of Admission: Voluntary Legal Status: Capacity Chief Complaint (in patient's own words): "I was very depressed" History of Present Illness and Precipitating Events: He is seen, chart reviewed, and case discussed. He is known from previous admissions, last one being end of November when he left detox unit AMA bc his dog was sick. He is a 52 year old male who is single and with no children. 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 He says he has been feeling very depressed for the last few weeks; anhedonic, suicidal (planned to OD), poor sleep/appetite, guilty feelings, irritability but no giovanna or AVH/del He snorts 10 bags of heroin a day. He began using at 17 years old and it has been regular ever since. He smokes 1 pack of cigarettes a day and drinks 6 or less of the 24oz bottles of beer every day. He denies use of cocaine, marijuana, benzodiazepines, or any other substances. However, he did use crack cocaine before admission. He has never been to a rehabilitation center before but has been to this detoxification program 4-5 times in the past. He denies any event that initiated the relapse except for leaving detox prematurely - relapsed the same day. He denies any hospitalizations for psychiatric conditions. His plan after this program is to enter a rehabilitation center "for sure" this time. Past Medical History: Hepatitis C untreated Allergies: Denies Family History: Denies Psychiatric History: Denies. Current Medications: Active Medications Generic Name Dose Route Start Last Admin Trade Name Freq PRN Reason Stop Dose Admin Al Hydrox/Mg Hydrox/Simethicone 30 ml 01/05/18 17:16 Maalox 30 Ml PO TID PRN Indigestion / Heartburn Clonidine HCl 0.1 mg 01/05/18 17:16 Catapres PO Q4 PRN COWS Score More or Equal to 5 Dicyclomine HCl 10 mg 01/05/18 17:23 Bentyl PO Q6 PRN Abdominal cramps Gabapentin 400 mg 01/05/18 18:00 01/06/18 10:50 Neurontin PO 400 mg TID DIEGO Administration Hydroxyzine HCl 50 mg 01/05/18 21:53 01/05/18 21:59 Atarax PO 50 mg Q6H PRN Administration Anxiety Ibuprofen 400 mg 01/05/18 17:28 Motrin Tab PO Q6 PRN Pain, moderate (4-7) Loperamide HCl 2 mg 01/05/18 17:16 Imodium PO Q8 PRN Diarrhea Methadone HCl 5 mg 01/06/18 10:56 Methadone PO 01/09/18 09:59 Q24H DIEGO Taper Mirtazapine 15 mg 01/06/18 22:00 Remeron PO HS DIEGO Ondansetron HCl 4 mg 01/05/18 17:16 Zofran Tab PO Q8 PRN Nausea/Vomiting Trazodone HCl 50 mg 01/05/18 22:00 01/05/18 21:42 Desyrel PO Not Given HS DIEGO Past Psychiatric History - Past Psychiatric History Previous Treatment History: None Pertinent Medical Hx (Current Medical&Sleep Prob, Allergies): Allergies Allergy/AdvReac Type Severity Reaction Status Date / Time No Known Allergies Allergy Verified 01/05/18 09:45 No Known Home Med 12/12/17 Review of Systems - Neurological Neurological: UNREMARKABLE - Psychiatric Psychiatric: Abnormal Sleep Pattern, Anhedonia, Anxiety, Behavioral Changes, Change in Appetite, Depression, Difficulty Concentrating, Irritability, Mood Swings. absent: Hallucinations, Homicidal Ideation, Paranoia, Suicidal Ideation Mental Status Examination - Personal Presentation Personal Presentation: Looks older than stated age - Affect Affect: Constricted - Motor Activity Motor Activity: Calm - Reliability in Providing Information Reliability in Providing Information: Fair - Speech Speech: Organized - Mood Mood: Depressed, Anxious - Formal Thought Process Formal Thought Process: No Impairment - Cognitive Functions Orientation: Person, Place, Situation, Time Sensorium: Alert Attention/Concentration: Easily distracted Abstract Thinking: Douglas Estimate of Intelligence: Average Judgement: Intact, as evidence by: Insight regarding need for hospitalization Memory: Recent intact, as evidence by: Ability to recall events of the day, Remote intact, as evidenced by: Abilit to recall sig. life events - Risk Risk: Withdrawal, Diminished functioning - Strength & Assets Inventory Strength & Assets Inventory: Cooperative - Limitations Limitations: Living alone, Other DSM 5 DX - DSM 5 DSM 5 Diagnosis: Major Depression, severe Opioid withdrawal Opioid use d/o, severe Alcohol use d/o severe Tobacco use d/o severe Personality D/o - unspecified - Recommended/Plan of Treatment Treatment Recommendations and Plan of Treatment: Remeron for depression Taper with methadone Observe alcohol wdw and treat as needed Gabapentin for augmentation if needed As needed medications All risks, benefits and alternatives of the meds discussed, and the pt agreed and understood. Attend groups and activities Supportive therapy and psychoeducation NV for abstinence CBT for relapse prevention Encourage MAT Refer to rehab or IOP, and self-help groups Teach healthy lifestyle methods, i.e. diet, exercise, meditation Smoking cessation with NV Nicotine patch if needed 34 min Projected ELOS: 4-5 days Prognosis: good - Smoking Cessation Smoking Cessation Initiated: Yes
--- NOTE | 2018-01-07 14:30 | PCM.PYCHPN ---
Psychiatric Progress Note - Psychiatric Progress Note Patient seen today, length of contact: 15 minutes Patient Chief Complaint: I'm feeling little better with the treatment. Problems Identified/Issues Discussed: Patient seen, chart reviewed, case discussed with the staff. Issues related to illness and treatment were discussed with the patient and staff. Reported compliant with treatment with no adverse effects. Tolerating treatment very well. Reported feeling better. Feeling less withdrawal symptoms and also mood is better. Awake, alert and confused Calm and cooperative with good eye contact. Mood reported as depressed. Affect inappropriate, appeared euthymic and social. Treatment discussed with the patient. Needs more time for stabilization. Aftercare discussed with the patient. Denied any delusions, auditory or visual hallucinations, suicidal ideations or homicidal ideations at the time of evaluation. Medical Problems: hepatitis C Diagnostic Results: Reviewed DSM 5 Symptoms Update: Some improvement with treatment Medication Change: No Medical Record Reviewed: Yes Mental Status Examination - Cognitive Function Orientation: Person, Place, Situation, Time Memory: Intact Attention: WNL Concentration: WNL Association: [facility] Fund of Knowledge: [facility] Decription of patient's judgement and insights: Fair - Mood Mood: Depressed - Affect Affect: Other (Appropriate) - Speech Speech: Appropriate - Formal Thought Process Formal Thought Process: No Impairment Psychotic Thoughts and Behaviors: None - Suicidal Ideation Suicidal Ideation: No - Homicidal Ideation Homicidal Ideation: No Goal/Treatment Plan - Goal/Treatment Plan Need for Continued Stay: Remain at risks for inpatient hospitalization, Discharge may exacerbated symptoms, Severe functional impairment Progress Toward Problem(s) and Goals/Treatment Plan: Some improvement with treatment. Patient education. Supportive therapy. CBT for relapse prevention. [place] for abstinence. Continue treatment as before. Estimated Date of D/C: 01/09/18 - Smoking Cessation Smoking Cessation Initiated: No Reason for not providing: Patient doesn't smoke cigarettes
--- NOTE | 2018-01-08 23:29 | PCM.PYCHPN ---
Psychiatric Progress Note - Psychiatric Progress Note Patient seen today, length of contact: 15 minutes Patient Chief Complaint: I'm feeling better with the treatment. Problems Identified/Issues Discussed: Patient seen, chart reviewed, case discussed with the staff. Issues related to illness and treatment were discussed with the patient and staff. Reported compliant with treatment with no adverse effects. Tolerating treatment very well. Reported feeling better. Feeling less withdrawal symptoms and also mood is better. Awake, alert and confused Calm and cooperative with good eye contact. Mood reported as depressed. Affect appropriate. Treatment discussed with the patient. Needs more time for stabilization. Aftercare discussed with the patient. Denied any delusions, auditory or visual hallucinations, suicidal ideations or homicidal ideations at the time of evaluation. Medical Problems: hepatitis C Diagnostic Results: Reviewed DSM 5 Symptoms Update: Some improvement with treatment Medication Change: No Medical Record Reviewed: Yes Mental Status Examination - Cognitive Function Orientation: Person, Place, Situation, Time Memory: Intact Attention: WNL Concentration: WNL Association: WNL Fund of Knowledge: WN Decription of patient's judgement and insights: Fair - Mood Mood: Depressed (Less than before) - Affect Affect: Other (Appropriate) - Speech Speech: Appropriate - Formal Thought Process Formal Thought Process: No Impairment Psychotic Thoughts and Behaviors: None - Suicidal Ideation Suicidal Ideation: No - Homicidal Ideation Homicidal Ideation: No Goal/Treatment Plan - Goal/Treatment Plan Need for Continued Stay: Remain at risks for inpatient hospitalization, Discharge may exacerbated symptoms, Severe functional impairment Progress Toward Problem(s) and Goals/Treatment Plan: Some improvement with treatment. Patient education. Supportive therapy. CBT for relapse prevention. [place] for abstinence. Continue treatment as before. Patient wants to go to [facility] for follow-up care after discharge from the hospital. Estimated Date of D/C: 01/09/18 - Smoking Cessation Smoking Cessation Initiated: No
[2018-01-09 06:26] VITALS: RESP 20; TEMP 98.1
--- NOTE | 2018-01-09 12:13 | PCM.PYCHPN ---
Psychiatric Progress Note - Psychiatric Progress Note Patient seen today, length of contact: 15 minutes Patient Chief Complaint: I'm feeling better. Problems Identified/Issues Discussed: Patient seen, chart reviewed, case discussed with the staff. Issues related to illness and treatment were discussed with the patient and staff. Reported compliant with treatment with no adverse effects. Tolerating treatment very well. According to staff, patient was isolative most of the time in his room, not attending groups or other activities on the unit. Discussed with patient about attending group and other activities on the unit. Reported feeling better. Feeling a few withdrawal symptoms including body aches and tiredness. Awake, alert and oriented 3 Calm and cooperative with good eye contact. Mood reported as okay. Affect appropriate. Treatment discussed with the patient. Needs more time for stabilization. Aftercare discussed with the patient. Denied any delusions, auditory or visual hallucinations, suicidal ideations or homicidal ideations at the time of evaluation. Medical Problems: hepatitis C Diagnostic Results: Reviewed DSM 5 Symptoms Update: Improving with treatment. Medication Change: No Medical Record Reviewed: Yes Mental Status Examination - Cognitive Function Orientation: Person, Place, Situation, Time Memory: Intact Attention: WNL Concentration: WNL Association: [facility] Fund of Knowledge: [facility] Decription of patient's judgement and insights: Fair - Mood Mood: Depressed (Much less than before.) - Affect Affect: Other (Appropriate) - Speech Speech: Appropriate - Formal Thought Process Formal Thought Process: No Impairment Psychotic Thoughts and Behaviors: None - Suicidal Ideation Suicidal Ideation: No - Homicidal Ideation Homicidal Ideation: No Goal/Treatment Plan - Goal/Treatment Plan Need for Continued Stay: Remain at risks for inpatient hospitalization, Discharge may exacerbated symptoms, Severe functional impairment Progress Toward Problem(s) and Goals/Treatment Plan: Some improvement with treatment. Patient education. Supportive therapy. CBT for relapse prevention. NM for abstinence. Continue treatment as before. Patient wants to go to [facility] for follow-up care after discharge from the hospital. Estimated Date of D/C: 01/10/18 - Smoking Cessation Smoking Cessation Initiated: No
[2018-01-09 16:13] VITALS: BP 106/71; PULSE 64
--- NOTE | 2018-01-11 15:33 | PCM.PYCHDC ---
Mental Status Examination - Mental Status Examination Orientation: Person, Place, Situation, Time Memory: Intact Mood: Neutral Affect: Other (Appropriate) Speech: Appropriate Attention: WNL Concentration: WNL Association: WNL Fund of Knowledge: WNL Formal Thought Process: No Impairment Description of patient's judgement and insight: Fair Psychotic Thoughts and Behaviors: None Suicidal Ideation: No Current Homicidal Ideation?: No Discharge Summary - Discharge Note Reason for Hospitalization: Major depressive disorder recurrent severe. Opioid use disorder severe. Alcohol use disorder severe. Tobacco use disorder severe. Laboratory Data: Reviewed Consultations:: List each consultation separately and include: 1. Reason for request. 2. Findings. 3. Follow-up Summary of Hospital Course include:: 1. Description of specific treatment plan utilized for patients during their course of treatmen. 2. Summarize the time- course for resolution of acute symptoms and/or regressed behaviors. 3. Describe issues identified and worked on during hospitalization. 4. Describe medication utilized. 5. Describe medical problems identified and treated. 6. Reassessment of suicide risk Summary of Hospital Course: He is seen, chart reviewed, and case discussed. He is known from previous admissions, last one being end of November when he left detox unit [facility] his dog was sick. He is a 52 year old male who is single and with no children. 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 He says he has been feeling very depressed for the last few weeks; anhedonic, suicidal (planned to OD), poor sleep/appetite, guilty feelings, irritability but no giovanna or AVH/del He snorts 10 bags of heroin a day. He began using at 17 years old and it has been regular ever since. He smokes 1 pack of cigarettes a day and drinks 6 or less of the 24oz bottles of beer every day. He denies use of cocaine, marijuana, benzodiazepines, or any other substances. However, he did use crack cocaine before admission. He has never been to a rehabilitation center before but has been to this detoxification program 4-5 times in the past. He denies any event that initiated the relapse except for leaving detox prematurely - relapsed the same day. He denies any hospitalizations for psychiatric conditions. His plan after this program is to enter a rehabilitation center "for sure" this time. Past Medical History: Hepatitis C untreated Allergies: Denies Family History: Denies Psychiatric History: Denies. During his stay in the hospital patient was treated with methadone taper, Remeron and other Lori medications. During his stay patient was staying in his room most of the time. Patient started feeling better with the above treatment with no withdrawal symptoms. Today patient was stable, had no withdrawal symptoms and ready for discharge from the hospital. At the time of evaluation and discharge, patient was awake, alert and oriented 3, had no delusions, no auditory or visual hallucinations, no suicidal ideations or suicidal ideations. Patient was discharged in a stable condition. Patient will go to [facility] for follow-up care after discharge from the hospital. - Diagnosis (1) Major depressive disorder, recurrent severe without psychotic features Status: Acute (2) Opioid use disorder, severe, dependence Status: Acute (3) Alcohol use disorder, severe, dependence Status: Acute (4) Tobacco use disorder, severe, dependence Status: Chronic - Final Diagnosis (DSM 5) Condition upon Discharge: STABLE Disposition: HOME/ ROUTINE Follow-up Treatment Plan: Patient wants to go to [facility] for follow-up care after discharge from the hospital. Prescriptions/Medication Reconciliation: Gabapentin [Neurontin] 400 mg PO TID #90 cap Mirtazapine [Remeron] 15 mg PO HS #30 tab traZODone [Desyrel] 50 mg PO HS #30 tab - Smoking Cessation Smoking Cessation Medication prescribed: No - Antipsychotic Medications Pt discharged on 2 or more routine antipsychotic medications: No
== END 2018-01-10 10:18 | disposition home or self-care (01) | DRG 430 ==
LOC: C.ER 09:27 → C.5E 12:23
PROC: GZ56ZZZ Individual Psychotherapy, Supportive (ICD-10-PCS; principal; 2018-01-05)
DX: F33.2 Major depressive disorder, recurrent severe without psychotic features (principal); B19.20 Unspecified viral hepatitis C without hepatic coma; F11.23 Opioid dependence with withdrawal; F14.10 Cocaine abuse, uncomplicated; F15.10 Other stimulant abuse, uncomplicated; F17.210 Nicotine dependence, cigarettes, uncomplicated; R45.851 Suicidal ideations; F10.20 Alcohol dependence, uncomplicated; F19.10 Other psychoactive substance abuse, uncomplicated

== ENCOUNTER 2018-02-06 00:09 | Inpatient (IN) | payer MEDICAID, OTHER ==
[2018-02-06 00:09] VITALS: BMI 28.9
--- NOTE | 2018-02-06 00:44 | C.PDOC ---
History Of Present Illness patient feels depressed. Worsening over a few days. No f/c/n/v. States he sometimes wants to jump in a river. Time Seen by Provider: 02/06/18 00:43 Chief Complaint (Nursing): Psychiatric Evaluation History Per: Patient History/Exam Limitations: no limitations Onset/Duration Of Symptoms: Days Current Symptoms Are (Timing): Still Present Suicide/Self Injury Attempted (Context): None Modifying Factor(s): Narcotics Severity: Moderate Pain Scale Rating Of: 4 Associated Symptoms: Depression Involuntary Hold By: None Recent travel outside of the [place]: No Additional History Per: Patient Past Medical History Reviewed: Historical Data, Nursing Documentation, Vital Signs Vital Signs: Last Vital Signs Temp 97.6 F 02/06/18 00:28 Pulse 79 02/06/18 00:28 Resp 15 02/06/18 00:28 BP 131/86 02/06/18 00:28 Pulse Ox 96 02/06/18 00:28 - Medical History PMH: Anxiety, Arthritis, Depression, Hepatitis (C (untreated)) Denies: Diabetes, HIV, HTN, Chronic Kidney Disease, Seizures, Sexually Transmitted Disease - [facility] Procedures DETOXIFICATION SERVICES FOR SUBSTANCE ABUSE TREATMENT (12/12/17) GROUP SALES ACCOUNT LEADER FOR SUBSTANCE ABUSE TREATMENT, PSYCHOEDUCATION (12/12/17) INDIV PSYCHOTHERAPY FOR SUBSTANCE ABUSE TREATMENT, SUPPORT (12/12/17) INDIV PSYCHOTHERAPY FOR SUBSTANCE ABUSE, COGNITIV BEHAVIORAL (04/22/16) INDIV PSYCHOTHERAPY FOR SUBSTANCE ABUSE, PSYCHOEDUCATION (04/22/16) INDIVIDUAL PSYCHOTHERAPY, SUPPORTIVE (01/05/18) INJECT/INFUSE NEC (12/12/13) MEDICATION MANAGEMENT (12/12/17) MEDS MGMT FOR SUBSTANCE ABUSE TREATMENT, METHADONE MAINT (12/12/17) MEDS MGMT FOR SUBSTANCE ABUSE TREATMENT, NICOTINE REPLACE (12/12/17) Family History: States: No Known Family Hx - Social History Hx Tobacco Use: No (1ppd) Hx Alcohol Use: Yes Hx Substance Use: Yes - Immunization History Hx Tetanus Toxoid Vaccination: No Hx Influenza Vaccination: No Hx Pneumococcal Vaccination: No Review Of Systems Constitutional: Negative for: Fever, Chills Cardiovascular: Negative for: Chest Pain Respiratory: Negative for: Shortness of Breath Gastrointestinal: Negative for: Abdominal Pain Musculoskeletal: Negative for: Back Pain Skin: Negative for: Rash Neurological: Negative for: Weakness Psych: Positive for: Anxiety, Depression Physical Exam - Physical Exam Appears: Non-toxic, No Acute Distress Neck: Supple Chest: Symmetrical Cardiovascular: Rhythm Regular Gastrointestinal/Abdominal: Soft, No Tenderness Back: Normal Inspection Extremity: Normal ROM Extremity: Bilateral: Atraumatic Neurological/Psych: Oriented x3 Gait: Steady ED Course And Treatment - Laboratory Results Result Diagrams: 02/06/18 01:07 02/06/18 01:07 O2 Sat by Pulse Oximetry: 96 Pulse Ox Interpretation: Normal Disposition Discussed With Dr.: Suzie Marsh Comment: accepted the pt on his service and took over the care at 2:32 AM Doctor Will See Patient In The: Hospital Counseled Patient/Family Regarding: Studies Performed, Diagnosis - Disposition Disposition: HOSPITALIZED Disposition Time: 00:43 Condition: FAIR Forms: [facility] ([place]) - POA Present On Arrival: None - Clinical Impression Clinical Impression: Major depression, Opioid use disorder Decision To Admit - Pt Status Changed To: Hospital Disposition Of: Inpatient - Admit Certification Admit to Inpatient:: After my assessment, the patient will require hospitalization for at least two midnights. This is because of the severity of symptoms shown, intensity of services needed, and/or the medical risk in this p atient being treated as an outpatient. - InPatient: Physician Admission Certification: I certify that this patient requires 2 or more midnights of care for the following reason:: After my assessment, the patient will require hospitalization for at least two midnights. This is because of the severity of symptoms shown, intensity of services needed, and/or the medical risk in this patient being treated as an outpatient. - . Bed Request Type: Psychiatry Admitting Physician: Suzie Marsh Patient Diagnosis: Major depression, Opioid use disorder
[2018-02-06 01:15] LABS: BASO # 0.1 K/uL (0.0-0.2); BASO % 0.9 % (0.0-2.0); EOS # 0.1 K/uL (0.0-0.7); EOS % 1.7 % (0.0-4.0); HEMOGLOBIN 15.2 g/dL (12.0-18.0); LYMPH # 3.1 K/uL (1.0-4.3); LYMPH % 46.1 % (20.0-40.0); MEAN CELL VOLUME 93.9 fL (80.0-94.0); MEAN CORPUSCULAR HEMOGLOBIN 32.3 pg (27.0-31.0); MEAN CORPUSCULAR HGB CONC 34.4 g/dL (33.0-37.0); MONO # 0.6 K/uL (0.0-0.8); MONO % 8.4 % (0.0-10.0); NEUT # 2.9 K/uL (1.8-7.0); NEUT % 42.9 % (50.0-75.0); RBC 4.7 Mil/uL (4.40-5.90); RED CELL DISTRIBUTION WIDTH 12.6 % (11.5-14.5); WHITE BLOOD COUNT 6.7 K/uL (4.8-10.8)
[2018-02-06 01:16] LABS: URINE BILIRUBIN NEGATIVE (NEGATIVE); URINE BLOOD NEGATIVE (NEGATIVE); URINE CLARITY Clear (Clear); URINE COLOR Yellow (YELLOW); URINE GLUCOSE (UA) NORMAL (Normal); URINE LEUKOCYTE ESTERASE NEG Leu/uL (Negative); URINE PROTEIN NEGATIVE (NEGATIVE); URINE UROBILINOGEN NORMAL mg/dL (0.2-1.0)
[2018-02-06 01:24] LABS: ALB/GLOB RATIO 1.2 (1.0-2.1); ALBUMIN 4.4 g/dL (3.5-5.0); ALT/SGPT 98 U/L (21-72); AST/SGOT 102 U/L (17-59); BLOOD UREA NITROGEN 6 mg/dL (9-20); CALCIUM 9.6 mg/dl (8.6-10.4); GFR NON-AFRICAN AMERICAN > 60
[2018-02-06 01:39] LABS: BARBITURATES, UR NEGATIVE (NEGATIVE); BENZODIAZEPINES, UR NEGATIVE (NEGATIVE); PHENCYCLIDINE, UR NEGATIVE (NEGATIVE)
[2018-02-06 02:07] LABS: OPIATES, UR POSITIVE (NEGATIVE)
--- NOTE | 2018-02-06 04:10 | PCM.BM ---
<Ricky Vasquez - Last Filed: 02/06/18 04:08> Treatment Plan Problems - Problems identified on initial assessmt MAJOR DEPRESSION Date Initiated: 02/06/18 Time Initiated: 03:20 Assessment reference: NA Status: Active SUBSTANCE ABUSE Date Initiated: 02/06/18 Time Initiated: 03:20 Assessment reference: NA Status: Active Treatment assets and liabiliti Patient Assests: cooperative, self-reliant, ADL independent, negotiates basic needs, cognitively intact Patient Liabilities: physical pain, financial problems, poor support system, substance abuse, medical problems, legal issue - Milieu Protocol Maintain good personal hygiene: daily Encourage regular showers, daily Remind patient to perform daily oral care, daily Assist patient to perform ADL's Maintain personal safety: every shift Educate patient to report safety concerns to staff, every shift Monitor environment for contraband/sharps Medication safety: Monitor for expected outcome, potential side effects: every shift, Assess barriers to learning: every shift, Assess readiness for medication education: every shift <Suzie Marsh - Last Filed: 02/06/18 11:18> - Diagnosis (1) Bipolar disorder Status: Acute Interventions: 02/06/18 11:18 * Assess/adjust medications daily and /or as needed * See patient on an individual basis 7x/week to assess level of manic behaviors and stability * Discuss risks, benefits, side effects and alternatives of medications * (2) Opioid use disorder Status: Acute Interventions: 02/06/18 11:18 * Assess 7x/week regarding severity of withdrawal * Educate regarding risks, benefits, side effects and alternatives of medications * Use Motivational Interviewing for abstinence * Use CBT for relapse prevention * Medication management for withdrawal symptoms * Encourage medication assisted treatment * (3) Alcohol use disorder, severe, dependence Status: Acute Interventions: 02/06/18 11:19 * Assess 7x/week regarding severity of withdrawal * Educate regarding risks, benefits, side effects and alternatives of medications * Use Motivational Interviewing for abstinence * Use CBT for relapse prevention * Medication management for withdrawal symptoms * Encourage medication assisted treatment * <Josephine Beck - Last Filed: 02/06/18 11:27> Family Contact Family involvement: Patient does not wish Family/SO involvement Family contact: Patient declines to allow family contact at present - Goals for Treatment Patient goals for treatment: "I want to go to an outpatient program." Discharge/Continuing Care - Education Needs Education Needs: Patient Medication, Patient Diagnosis/Disease Process, Patient Coping Skills, Patient Placement options, Patient Community resources - Discharge Discharge Criteria: Free of Suicidal thoughts, Normal sleep pattern, Ability to care for self, No longer exhibiting s/s of withdrawal, Reduction of target symptoms Discharge to:: Home - Treatment Team Participation Discussed with Family/SO: No Was Patient/Family/SO present at Treatment Team Meeting: Yes
[2018-02-06 09:25] VITALS: RESP 20
--- NOTE | 2018-02-06 10:03 | PCM.PSYCH ---
Initial Psychiatric Evaluation - Initial Psychiatric Evaluation Type of Admission: Voluntary Legal Status: Capacity Chief Complaint (in patient's own words): I was feeling depressed and suicidal.' History of Present Illness and Precipitating Events: This is a 52 years old male, currently single and unemployed, who came to the ED with depressed mood, suicidal ideation with plan to jump into the river. Patient reports history of few inpatient psychiatric hospitalizations and history of multiple detoxes in the past. However he remained noncompliant with outpatient treatment. Patient reports that soon after discharge last month he relapsed on drinking and heroin. He reports of drinking more than 6-12 beers along with 10-12 bags of heroin. Yesterday he consumed almost 6 packs of beers and abused 12 bags of heroin, bec nitin increasingly depressed and suicidal and developed thoughts of jumping into the river. However he came to the hospital to get help. Patient reports irritability, agitation and racing thoughts. He also reports depressed mood, feelings of hopelessness and helplessness, poor sleep and poor appetite. He reports suicidal ideation however he denies any homicidal ideation. He denies any auditory or visual hallucinations or any paranoia. He reports withdrawal symptoms including nausea, vomiting, diarrhea, abdominal cramps, joint pains, shakes, sweating and muscle aches. Past medical history None reported Current Medications: Active Medications Generic Name Dose Route Start Last Admin Trade Name Freq PRN Reason Stop Dose Admin Hydroxyzine HCl 25 mg 02/06/18 03:25 02/06/18 03:49 Atarax PO 25 mg Q6 PRN Administration Anxiety Ibuprofen 600 mg 02/06/18 03:25 02/06/18 03:47 Motrin Tab PO 600 mg Q6 PRN Administration Pain, moderate (4-7) Influenza Virus Vaccine 60 mcg 02/08/18 10:00 Fluzone Quad [id number] IM 02/08/18 10:01 .ONCE ONE Nicotine 1 patch 02/06/18 10:00 Nicoderm Cq TD DAILY DIEGO Pneumococcal Polyvalent Vaccine 0.5 ml 02/08/18 10:20 Pneumovax 23 Vaccine IM 02/08/18 10:21 .ONCE ONE Past Psychiatric History - Past Psychiatric History Previous Treatment History: Inpatient Pertinent Medical Hx (Current Medical&Sleep Prob, Allergies): Allergies Allergy/AdvReac Type Severity Reaction Status Date / Time No Known Allergies Allergy Verified 02/06/18 00:31 Review of Systems - Review of Systems All systems: reviewed and no additional remarkable complaints except - Psychiatric Psychiatric: Anxiety, Irritability, Mood Swings, Suicidal Ideation Mental Status Examination - Affect Affect: Broad - Motor Activity Motor Activity: Psychomotor Agitation - Reliability in Providing Information Reliability in Providing Information: Poor, due to altered mood - Speech Speech: Organized - Mood Mood: Depressed, Anxious - Formal Thought Process Formal Thought Process: Flight of ideas - Obsessions/Compulsions Obsessions: No Compulsions: No - Cognitive Functions Orientation: Person, Place, Situation, Time Sensorium: Alert Attention/Concentration: Attentive Abstract Thinking: [place] Estimate of Intelligence: Below average Judgement: Imparied, as evidence by: Poor judgement, Imparied, as evidence by: Lack of insight into illness - Risk Risk: Suicidal, Withdrawal, Diminished functioning - Limitations Limitations: Living alone DSM 5 DX - DSM 5 DSM 5 Diagnosis: Bipolar disorder depressed severe without psychotic features Opioid use disorder severe Opioid withdrawal Alcohol use disorder severe Alcohol withdrawal - Recommended/Plan of Treatment Treatment Recommendations and Plan of Treatment: Bipolar disorder depressed severe without psychotic features Opioid use disorder severe Opioid withdrawal Alcohol use disorder severe Alcohol withdrawal CBT Psychoeducation Supportive therapy Methadone taper Seroquel 100 mg p.o. nightly Hydroxyzine 25 mg p.o. every 6 hours as needed Neurontin 100 mg p.o. 3 times daily Ativan taper As needed detox medications
[2018-02-06] MEDS ORDERED: Aluminum Hydroxide/Magnesium Hydroxide Susp (30 mL) PO PRN (10:34)
[2018-02-06] MEDS: Multiple Vitamins Tab PO SCH (13:01)
[2018-02-07] MEDS: Multiple Vitamins Tab PO SCH (09:30)
--- NOTE | 2018-02-07 12:10 | PCM.PYCHPN ---
Psychiatric Progress Note - Psychiatric Progress Note Patient seen today, length of contact: 15 min Patient Chief Complaint: I m feeling depressed.' Problems Identified/Issues Discussed: Patient was seen and evaluated, chart reviewed and discussed with the staff. Patient still reports irritability agitation and racing thoughts. He still reports withdrawal symptoms including shakes, anxiety, headaches, cramps and joint pains. He still reports depressed mood, feelings of hopelessness and helplessness and suicidal ideation. He is taking medication but denies any side effects Supportive therapy was given Medication Change: Yes Medical Record Reviewed: Yes Mental Status Examination - Cognitive Function Orientation: Person, Place, Situation, Time Memory: Intact Attention: WNL Concentration: Poor Association: WNL Fund of Knowledge: Poor - Mood Mood: Depressed, Anxious - Affect Affect: Broad - Speech Speech: Soft - Formal Thought Process Formal Thought Process: Flight of ideas - Suicidal Ideation Suicidal Ideation: No - Homicidal Ideation Homicidal Ideation: No Goal/Treatment Plan - Goal/Treatment Plan Need for Continued Stay: Severe depression anxiety, Severe functional impairment Progress Toward Problem(s) and Goals/Treatment Plan: Bipolar disorder depressed severe without psychotic features Opioid use disorder severe Opioid withdrawal Alcohol use disorder severe Alcohol withdrawal CBT Psychoeducation Supportive therapy Methadone taper Seroquel 100 mg p.o. nightly Hydroxyzine 25 mg p.o. every 6 hours as needed Neurontin 300 mg p.o. 3 times daily Ativan taper As needed detox medications [place] 300 mg p.o. 3 times daily
[2018-02-08] MEDS ORDERED: Influenza Vaccine 60 MCG/0.5 ML SYR (3 yr & up) IM ONE (10:00)
[2018-02-08] MEDS: Multiple Vitamins Tab PO SCH (10:03)
[2018-02-08] MEDS ORDERED: Pneumococcal 23-Valent Vaccine IM ONE (10:20)
[2018-02-08 10:32] VITALS: O2SAT 97
[2018-02-09] MEDS: Multiple Vitamins Tab PO SCH (09:26)
[2018-02-10] MEDS: Multiple Vitamins Tab PO SCH (09:26)
[2018-02-11] MEDS: Multiple Vitamins Tab PO SCH (09:17)
[2018-02-12] MEDS: Multiple Vitamins Tab PO SCH (10:00)
--- NOTE | 2018-02-12 21:15 | PCM.PYCHPN ---
Psychiatric Progress Note - Psychiatric Progress Note Patient seen today, length of contact: 15 min Patient Chief Complaint: Still has sleeping difficulty. Can get something for sleep. Problems Identified/Issues Discussed: Patient seen, chart reviewed, case discussed with the staff. Issues related to illness and treatment were discussed with the patient and staff. Calm and partially cooperative. Mood reported as okay. Affect appropriate. Reported still having difficulty sleeping even with Seroquel. Asking for some of the medication. We will start Atarax 50 mg at bedtime for sleep. Patient agreed. Reported compliant with treatment with no adverse effects. Awake, alert and oriented x3. Memory intact. Patient is feeling better but needs more time for stabilization. Aftercare discussed with the patient. Denied any delusions, auditory or visual hallucinations, no suicidal ideations or homicidal ideations at the time of evaluation. Medical Problems: None reported Diagnostic Results: Reviewed DSM 5 Symptoms Update: Some improvement with treatment Medication Change: Yes (Will start Atarax 50 mg at bedtime for) Medical Record Reviewed: Yes Mental Status Examination - Cognitive Function Orientation: Person, Place, Situation, Time Memory: Intact Attention: WNL Concentration: WNL Association: WNL Fund of Knowledge: [facility] Decription of patient's judgement and insights: Fair - Mood Mood: Depressed - Affect Affect: Depressed - Speech Speech: Appropriate - Formal Thought Process Formal Thought Process: No Impairment Psychotic Thoughts and Behaviors: None - Suicidal Ideation Suicidal Ideation: No - Homicidal Ideation Homicidal Ideation: No Goal/Treatment Plan - Goal/Treatment Plan Need for Continued Stay: Remain at risks for inpatient hospitalization, Discharge may exacerbated symptoms, Severe functional impairment Progress Toward Problem(s) and Goals/Treatment Plan: Patient education. Supportive therapy. Continue treatment as before. Estimated Date of D/C: 02/15/18 - Smoking Cessation Smoking Cessation Initiated: Yes
[2018-02-13 08:59] VITALS: BP 121/86; PULSE 80; TEMP 97.6
[2018-02-13] MEDS: Multiple Vitamins Tab PO SCH (10:10)
--- NOTE | 2018-02-13 12:56 | PCM.PYCHDC ---
Mental Status Examination - Mental Status Examination Orientation: Person, Place, Situation, Time Memory: Intact Mood: Neutral Affect: Constricted Speech: Soft Attention: WNL Concentration: WNL Association: WNL Fund of Knowledge: WNL Formal Thought Process: No Impairment Description of patient's judgement and insight: good, fair Psychotic Thoughts and Behaviors: denies any AVH Suicidal Ideation: No Current Homicidal Ideation?: No Discharge Summary - Discharge Note Consultations:: List each consultation separately and include: 1. Reason for request. 2. Findings. 3. Follow-up Summary of Hospital Course include:: 1. Description of specific treatment plan utilized for patients during their course of treatmen. 2. Summarize the time- course for resolution of acute symptoms and/or regressed behaviors. 3. Describe issues identified and worked on during hospitalization. 4. Describe medication utilized. 5. Describe medical problems identified and treated. 6. Reassessment of suicide risk Summary of Hospital Course: This is a 52 years old male, currently single and unemployed, who came to the ED with depressed mood, suicidal ideation with plan to jump into the river. Patient reports history of few inpatient psychiatric hospitalizations and history of multiple detoxes in the past. However he remained noncompliant with outpatient treatment. Patient reports that soon after discharge last month he relapsed on drinking and heroin. He reports of drinking more than 6-12 beers along with 10-12 bags of heroin. Yesterday he consumed almost 6 packs of beers and abused 12 bags of heroin, became increasingly depressed and suicidal and developed thoughts of jumping into the river. However he came to the hospital to get help. Patient reports irritability, agitation and racing thoughts. He also reports depressed mood, feelings of hopelessness and helplessness, poor sleep and poor appetite. He reports suicidal ideation however he denies any homicidal ideation. He denies any auditory or visual hallucinations or any paranoia. He reports withdrawal symptoms including nausea, vomiting, diarrhea, abdominal cramps, joint pains, shakes, sweating and muscle aches. Past medical history None reported - Diagnosis (1) Bipolar disorder Current Visit: Yes Status: Acute (2) Opioid use disorder Current Visit: Yes Status: Acute (3) Alcohol use disorder, severe, dependence Current Visit: No Status: Acute - Final Diagnosis (DSM 5) Condition upon Discharge: FAIR Disposition: HOME/ ROUTINE Follow-up Treatment Plan: Bipolar disorder depressed severe without psychotic features Opioid use disorder severe Opioid withdrawal Alcohol use disorder severe Alcohol withdrawal CBT Psychoeducation Supportive therapy Methadone taper Seroquel 100 mg p.o. nightly Hydroxyzine 25 mg p.o. every 6 hours as needed Neurontin 300 mg p.o. 3 times daily Ativan taper As needed detox medications [place] 300 mg p.o. 3 times daily Prescriptions/Medication Reconciliation: Gabapentin [Neurontin] 300 mg PO BID #60 cap [place] Carbonate [[place] Carbonate 300MG] 300 mg PO BID #60 cap Mirtazapine [Remeron] 30 mg PO HS #30 tab QUEtiapine [Seroquel] 100 mg PO HS #30 tab
== END 2018-02-13 13:15 | disposition home or self-care (01) | DRG 430 ==
LOC: C.ER 00:09 → C.5E 02:29
PROVIDERS: ADMIT Psychiatry & Neurology Psychiatry; ATTEND Psychiatry & Neurology Psychiatry
DX: F31.9 Bipolar disorder, unspecified (principal); F10.239 Alcohol dependence with withdrawal, unspecified; F11.23 Opioid dependence with withdrawal; R45.851 Suicidal ideations; F41.9 Anxiety disorder, unspecified; Z91.19 Patient's noncompliance with other medical treatment and regimen

== ENCOUNTER 2018-03-18 16:30 | Inpatient (IN) | payer OTHER ==
[2018-03-18 16:30] VITALS: BMI 28.9
[2018-03-18 17:58] LABS: BASO # 0.1 K/uL (0.0-0.2); BASO % 1.1 % (0.0-2.0); EOS # 0.1 K/uL (0.0-0.7); EOS % 1.4 % (0.0-4.0); HEMOGLOBIN 13.8 g/dL (12.0-18.0); LYMPH # 2.2 K/uL (1.0-4.3); LYMPH % 35.6 % (20.0-40.0); MEAN CELL VOLUME 94.2 fL (80.0-94.0); MEAN CORPUSCULAR HEMOGLOBIN 31.5 pg (27.0-31.0); MEAN CORPUSCULAR HGB CONC 33.4 g/dL (33.0-37.0); MEAN PLATELET VOLUME 9.3 fL (7.2-11.7); MONO # 0.5 K/uL (0.0-0.8); MONO % 7.7 % (0.0-10.0); NEUT # 3.4 K/uL (1.8-7.0); NEUT % 54.2 % (50.0-75.0); RBC 4.39 Mil/uL (4.40-5.90); WHITE BLOOD COUNT 6.2 K/uL (4.8-10.8)
--- NOTE | 2018-03-18 17:59 | C.PDOC ---
History Of Present Illness 52 y/o male presents to the ER requesting detox from heroin. Patient states that he snorts heroin. Patient reports that he feels depressed and he is afraid he is going to hurt himself. His plan would be to overdose. He notes that he woke up 1 week ago with a hospital bracelet on his arm and he was not aware of his surroundings. He is currently unemployed. Denies having fever, chills, headache, CP, SOB, nausea, and vomiting. Time Seen by Provider: 03/18/18 17:03 Chief Complaint (Nursing): Psychiatric Evaluation History Per: Patient History/Exam Limitations: no limitations Onset/Duration Of Symptoms: Days Current Symptoms Are (Timing): Still Present Severity: Moderate Past Medical History Reviewed: Historical Data, Nursing Documentation, Vital Signs Vital Signs: Last Vital Signs Temp 98.6 F 03/18/18 17:09 Pulse 53 L 03/18/18 17:09 Resp 18 03/18/18 17:09 BP 113/73 03/18/18 17:09 Pulse Ox 100 03/18/18 17:09 - Medical History PMH: Anxiety, Arthritis, Depression, Hepatitis (C (untreated)) Denies: Diabetes, HIV (Tested negative), HTN, Chronic Kidney Disease, Seizures, Sexually Transmitted Disease Surgical History: No Surg Hx - [facility] Procedures DETOXIFICATION SERVICES FOR SUBSTANCE ABUSE TREATMENT (12/12/17) GROUP ELECTRIC CLOCK MECHANIC FOR SUBSTANCE ABUSE TREATMENT, PSYCHOEDUCATION (12/12/17) INDIV PSYCHOTHERAPY FOR SUBSTANCE ABUSE TREATMENT, SUPPORT (12/12/17) INDIV PSYCHOTHERAPY FOR SUBSTANCE ABUSE, COGNITIV BEHAVIORAL (04/22/16) INDIV PSYCHOTHERAPY FOR SUBSTANCE ABUSE, PSYCHOEDUCATION (04/22/16) INDIVIDUAL PSYCHOTHERAPY, SUPPORTIVE (01/05/18) INJECT/INFUSE NEC (12/12/13) MEDICATION MANAGEMENT (12/12/17) MEDS MGMT FOR SUBSTANCE ABUSE TREATMENT, METHADONE MAINT (12/12/17) MEDS MGMT FOR SUBSTANCE ABUSE TREATMENT, NICOTINE REPLACE (12/12/17) Family History: States: No Known Family Hx - Social History Hx Tobacco Use: No (1ppd) Hx Alcohol Use: Yes Hx Substance Use: Yes - Immunization History Hx Tetanus Toxoid Vaccination: No Hx Influenza Vaccination: No Hx Pneumococcal Vaccination: No Review Of Systems Except As Marked, All Systems Reviewed And Found Negative. Constitutional: Negative for: Fever, Chills Cardiovascular: Negative for: Chest Pain Respiratory: Negative for: Shortness of Breath Gastrointestinal: Negative for: Nausea, Vomiting Psych: Positive for: Depression, Suicidal ideation Physical Exam - Physical Exam Appears: No Acute Distress Skin: Warm, Dry Head: Atraumatic, Normacephalic, Other (flushed) Eye(s): bilateral: Normal Inspection Nose: Normal Oral Mucosa: Moist Neck: Supple Chest: Symmetrical Cardiovascular: Rhythm Regular Respiratory: Normal Breath Sounds, No Rales, No Rhonchi, No Wheezing Gastrointestinal/Abdominal: Normal Exam, Soft, No Tenderness, No Guarding, No Rebound Neurological/Psych: Oriented x3, Normal Speech ED Course And Treatment - Laboratory Results Result Diagrams: 03/18/18 17:53 03/18/18 17:53 O2 Sat by Pulse Oximetry: 100 (RA) Pulse Ox Interpretation: Normal Medical Decision Making Medical Decision Making: Plan: --Labs --UA --CRISIS Evaluation Disposition - Disposition Disposition: HOSPITALIZED Disposition Time: 18:41 Condition: GUARDED Forms: [facility] ([place]) - Clinical Impression Clinical Impression: Opioid abuse, Suicidal ideation - Scribe Statement The provider has reviewed the documentation as recorded by the Scribe All medical record entries made by the Scribe were at my direction and personally dictated by me. I have reviewed the chart and agree that the record accurately reflects my personal performance of the history, physical exam, medical decision making, and the department course for this patient. I have also personally directed, reviewed, and agree with the discharge instructions and disposition. Physician Patient Turnover Patient Signed Over To: Barrie Sal Handoff Comments: medically cleared, pending dispo by crisis
[2018-03-18 18:05] LABS: URINE BILIRUBIN NEGATIVE (NEGATIVE); URINE BLOOD NEGATIVE (NEGATIVE); URINE CLARITY Clear (Clear); URINE COLOR Yellow (YELLOW); URINE GLUCOSE (UA) NORMAL (Normal); URINE LEUKOCYTE ESTERASE NEG Leu/uL (Negative); URINE PROTEIN NEGATIVE (NEGATIVE)
[2018-03-18 18:11] LABS: ALB/GLOB RATIO 1.3 (1.0-2.1); ALBUMIN 4.1 g/dL (3.5-5.0); ALT/SGPT 141 U/L (21-72); AST/SGOT 130 U/L (17-59); BLOOD UREA NITROGEN 12 mg/dL (9-20); CALCIUM 9.5 mg/dl (8.6-10.4); GFR NON-AFRICAN AMERICAN > 60
[2018-03-18 18:20] LABS: BARBITURATES, UR NEGATIVE (NEGATIVE); BENZODIAZEPINES, UR NEGATIVE (NEGATIVE); PHENCYCLIDINE, UR NEGATIVE (NEGATIVE)
[2018-03-18 18:21] LABS: OPIATES, UR POSITIVE (NEGATIVE)
--- NOTE | 2018-03-18 23:52 | PCM.BM ---
<Canelo Palma Joshua - Last Filed: 03/18/18 23:49> Treatment Plan Problems - Problems identified on initial assessmt Suicidal Ideation Date Initiated: 03/18/18 Time Initiated: 23:00 Assessment reference: NA Status: Monitor Defensive Coping Date Initiated: 03/18/18 Time Initiated: 23:00 Assessment reference: NA Status: Active Hopelessness Date Initiated: 03/18/18 Time Initiated: 23:00 Assessment reference: NA Status: Active Treatment assets and liabiliti Patient Assests: cooperative, ADL independent, negotiates basic needs, cognitively intact Patient Liabilities: live alone, financial problems, poor support system, substance abuse (Hx of Heroin use and Alcohol use) - Milieu Protocol Maintain good personal hygiene: daily Encourage regular showers, daily Remind patient to perform daily oral care, every shift Assist patient to perform ADL's Conduct patient checks and document Observation sheet: Q15 minutes Maintain personal safety: every shift Educate patient to report safety concerns to staff, every shift Monitor environment for contraband/sharps Medication safety: Monitor for expected outcome, potential side effects: every shift, Assess barriers to learning: every shift, Assess readiness for medication education: every shift <Suzie Marsh - Last Filed: 03/20/18 11:20> - Diagnosis (1) Major depressive disorder, recurrent, unspecified Status: Acute Interventions: 03/20/18 11:20 * Assess/adjust medications daily and /or as needed * See patient on an individual basis 7x/week to assess symptoms of depression * Monitor for side effects & effectiveness of medications * (2) Alcohol use disorder, severe, dependence Status: Acute Interventions: 03/20/18 11:20 * Assess 7x/week regarding severity of withdrawal * Educate regarding risks, benefits, side effects and alternatives of medications * Use Motivational Interviewing for abstinence * Use CBT for relapse prevention * Medication management for withdrawal symptoms * Encourage medication assisted treatment * (3) Opioid dependence Status: Acute Interventions: 03/20/18 11:20 * Assess 7x/week regarding severity of withdrawal * Educate regarding risks, benefits, side effects and alternatives of medications * Use Motivational Interviewing for abstinence * Use CBT for relapse prevention * Medication management for withdrawal symptoms * Encourage medication assisted treatment * <Debo Lazo - Last Filed: 03/20/18 11:56> Family Contact Family involvement: Famliy/SO not involved - Goals for Treatment Patient goals for treatment: "I want to go to rehab." Discharge/Continuing Care - Education Needs Education Needs: Patient Medication, Patient Coping Skills, Patient Placement options, Patient Community resources - Discharge Discharge Criteria: Tolerates medication w/o severe side effects, No longer exhibiting s/s of withdrawal, Reduction of target symptoms Discharge to:: Substance Abuse Rehab - Treatment Team Participation Discussed with Family/SO: No Was Patient/Family/SO present at Treatment Team Meeting: Yes
--- NOTE | 2018-03-19 09:41 | PCM.PSYCH ---
Initial Psychiatric Evaluation - Initial Psychiatric Evaluation Type of Admission: Voluntary Legal Status: Capacity Chief Complaint (in patient's own words): I was feeling down and depressed History of Present Illness and Precipitating Events: Patient is a 56 year old male that presented to the [facility] ED on 03/18 and was admitted to the [facility] psychiatric unit for depression with suicidal ideation. Patient denies any previous history of psychiatric illness but was previously psychiatrically hospitalized here for evaluation of depression and substance abuse. On examination the patient appears anxious but is open to questioning. Patient reports that he has been abusing increasing amount of heroin that is making him more depressed. He uses 12-25 bags of heroin a day, which he started at the age of 17. Patient drinks a 12 pack of beer daily, with quantities ranging from 12 to 24 ounces, and that his last drink was on 03/18 when he drank five 24 ounce beers. Patient also smokes a pack of cigarettes a day and has done so for many years. Patient is currently single and lives with friends. He has been unemployed since last november. He reports depressed mood, at times feelings of hopelessness and helplessness. He also reports poor sleep and poor appetite. However he denies any auditory or visual hallucinations or any paranoia. He reports anxiety but denies any panic attacks or any racing thoughts. Past medical history Current Medications: Active Medications Generic Name Dose Route Start Last Admin Trade Name Freq PRN Reason Stop Dose Admin Gabapentin 300 mg 03/19/18 10:00 Neurontin PO BID DIEGO Hydroxyzine HCl 50 mg 03/18/18 23:13 Atarax PO Q6H PRN Anxiety Ibuprofen 600 mg 03/18/18 23:13 Motrin Tab PO Q6H PRN Pain, moderate (4-7) Methadone HCl 15 mg 03/19/18 14:00 Methadone PO 03/19/18 14:01 ONCE ONE Methadone HCl 10 mg 03/20/18 10:00 Methadone PO 03/23/18 09:59 Q24H DIEGO Taper Mirtazapine 15 mg 03/18/18 23:15 03/18/18 23:38 Remeron PO Not Given HS DIEGO Pneumococcal Polyvalent Vaccine 0.5 ml 03/22/18 10:00 Pneumovax 23 Vaccine IM 03/22/18 10:01 .ONCE ONE Quetiapine Fumarate 100 mg 03/18/18 23:15 03/18/18 23:38 Seroquel PO Not Given [facility] Past Psychiatric History - Past Psychiatric History Previous Treatment History: Inpatient Pertinent Medical Hx (Current Medical&Sleep Prob, Allergies): Allergies Allergy/AdvReac Type Severity Reaction Status Date / Time No Known Allergies Allergy Verified 02/06/18 00:31 Gabapentin [Neurontin] 300 mg PO BID #60 cap 02/13/18 Onarga Carbonate [Onarga Carbonate 300MG] 300 mg PO BID #60 cap 02/13/18 Mirtazapine [Remeron] 30 mg PO HS #30 tab 02/13/18 QUEtiapine [Seroquel] 100 mg PO HS #30 tab 02/13/18 Review of Systems - Review of Systems All systems: reviewed and no additional remarkable complaints except - Psychiatric Psychiatric: Anxiety, Irritability, Suicidal Ideation Mental Status Examination - Personal Presentation Personal Presentation: Looks stated age - Affect Affect: Constricted, Depressed - Motor Activity Motor Activity: Calm - Reliability in Providing Information Reliability in Providing Information: Good - Speech Speech: Organized - Mood Mood: Depressed, Anxious - Formal Thought Process Formal Thought Process: No Impairment - Obsessions/Compulsions Obsessions: No Compulsions: No - Cognitive Functions Orientation: Person, Place, Situation, Time Sensorium: Alert Attention/Concentration: Attentive Abstract Thinking: [place] Estimate of Intelligence: Below average Judgement: Imparied, as evidence by: Poor judgement, Imparied, as evidence by: Lack of insight into illness - Risk Risk: Suicidal, Withdrawal, Diminished functioning - Limitations Limitations: Living alone DSM 5 DX - DSM 5 DSM 5 Diagnosis: Major depressive disorder recurrent severe without psychotic features Opioid use disorder severe Opioid withdrawal Alcohol use disorder severe Alcohol withdrawal - Recommended/Plan of Treatment Treatment Recommendations and Plan of Treatment: Major depressive disorder recurrent severe without psychotic features Opioid use disorder severe Opioid withdrawal Alcohol use disorder severe Alcohol withdrawal CBT Psychoeducation Supportive therapy and group therapy immunotherapy Methadone for opioid withdrawal Ativan for alcohol withdrawal Neurontin for augmentation Remeron for depression Trazodone for sleep Hydroxyzine for anxiety Withdrawal medications for heroin including clonidine/Zofran/Imodium ec For alcohol folic acid/multivitamin/thiamine
[2018-03-19] MEDS: Multiple Vitamins Tab PO SCH (10:16)
[2018-03-20 07:03] VITALS: O2SAT 99
[2018-03-20] MEDS: Multiple Vitamins Tab PO SCH (10:12)
--- NOTE | 2018-03-21 00:17 | PCM.PYCHPN ---
Psychiatric Progress Note - Psychiatric Progress Note Patient seen today, length of contact: 15 min Patient Chief Complaint: I was feeling down and depressed Problems Identified/Issues Discussed: Patient was seen and evaluated, chart reviewed and discussed the staff. Patient still reports depressed mood and at times feelings of hopelessness and helplessness. As per staff patient remained isolative and withdrawn. He denies any auditory hallucinations or any paranoia. He reports withdrawal symptoms including nausea, vomiting, cramps, joint pains and abdominal pain. He is taking medication but denies any side effects. Supportive therapy was given Medication Change: Yes Medical Record Reviewed: Yes Mental Status Examination - Cognitive Function Orientation: Person, Place, Situation, Time Memory: Intact Attention: WNL Concentration: Poor Association: WNL Fund of Knowledge: Poor - Mood Mood: Depressed, Anxious - Affect Affect: Constricted, Depressed - Speech Speech: Soft - Formal Thought Process Formal Thought Process: No Impairment - Suicidal Ideation Suicidal Ideation: No - Homicidal Ideation Homicidal Ideation: No Goal/Treatment Plan - Goal/Treatment Plan Need for Continued Stay: Remain at risks for inpatient hospitalization, Severe depression anxiety Progress Toward Problem(s) and Goals/Treatment Plan: Major depressive disorder recurrent severe without psychotic features Opioid use disorder severe Opioid withdrawal Alcohol use disorder severe Alcohol withdrawal CBT Psychoeducation Supportive therapy and group therapy immunotherapy Methadone for opioid withdrawal Ativan for alcohol withdrawal Neurontin for augmentation Remeron for depression Trazodone for sleep Hydroxyzine for anxiety Withdrawal medications for heroin including clonidine/Zofran/Imodium ec For alcohol folic acid/multivitamin/thiamine - Smoking Cessation Smoking Cessation Initiated: No
[2018-03-21] MEDS: Multiple Vitamins Tab PO SCH (09:41)
[2018-03-22] MEDS: Multiple Vitamins Tab PO SCH (09:45)
[2018-03-22] MEDS ORDERED: Influenza Vaccine 60 mcg/0.5 mL SYR (4YR UP) IM ONE (10:00)
[2018-03-22] MEDS ORDERED: Pneumococcal 23-Valent Vaccine IM ONE (10:00)
--- NOTE | 2018-03-22 11:23 | PCM.PYCHPN ---
Psychiatric Progress Note - Psychiatric Progress Note Patient seen today, length of contact: 15 min Patient Chief Complaint: I was feeling down and depressed Problems Identified/Issues Discussed: Patient was seen and evaluated, chart reviewed and discussed the staff. Patient reports some improvement in the depressed mood and reports some improvement in the feelings of hopelessness and helplessness. As per staff patient remained isolative and withdrawn. He denies any auditory hallucinations or any paranoia. He also reports some improvement in the withdrawal but still reports nausea, cramps, and abdominal pain. He is taking medication but denies any side effects. Supportive therapy was given Medication Change: Yes Medical Record Reviewed: Yes Mental Status Examination - Cognitive Function Orientation: Person, Place, Situation, Time Memory: Intact Attention: WNL Concentration: Poor Association: WNL Fund of Knowledge: Poor - Mood Mood: Depressed, Anxious - Affect Affect: Constricted, Depressed - Speech Speech: Soft - Formal Thought Process Formal Thought Process: No Impairment - Suicidal Ideation Suicidal Ideation: No - Homicidal Ideation Homicidal Ideation: No Goal/Treatment Plan - Goal/Treatment Plan Need for Continued Stay: Remain at risks for inpatient hospitalization, Severe depression anxiety Progress Toward Problem(s) and Goals/Treatment Plan: Major depressive disorder recurrent severe without psychotic features Opioid use disorder severe Opioid withdrawal Alcohol use disorder severe Alcohol withdrawal CBT Psychoeducation Supportive therapy and group therapy immunotherapy Methadone for opioid withdrawal Ativan for alcohol withdrawal Neurontin for augmentation Remeron for depression Trazodone for sleep Hydroxyzine for anxiety Withdrawal medications for heroin including clonidine/Zofran/Imodium ec For alcohol folic acid/multivitamin/thiamine
[2018-03-23] MEDS: Multiple Vitamins Tab PO SCH (09:03)
--- NOTE | 2018-03-23 21:23 | PCM.PYCHPN ---
Psychiatric Progress Note - Psychiatric Progress Note Patient seen today, length of contact: 15 min Medication Change: No Medical Record Reviewed: Yes Mental Status Examination - Cognitive Function Orientation: Person, Place, Situation, Time Memory: Intact Attention: WNL Concentration: Poor Association: WNL Fund of Knowledge: Poor - Mood Mood: Depressed, Anxious - Affect Affect: Constricted, Depressed - Speech Speech: Soft - Formal Thought Process Formal Thought Process: No Impairment - Suicidal Ideation Suicidal Ideation: No - Homicidal Ideation Homicidal Ideation: No Goal/Treatment Plan - Goal/Treatment Plan Need for Continued Stay: Remain at risks for inpatient hospitalization, Severe depression anxiety
[2018-03-24] MEDS: Multiple Vitamins Tab PO SCH (09:07)
[2018-03-25] MEDS: Multiple Vitamins Tab PO SCH (09:15)
--- NOTE | 2018-03-25 11:16 | PCM.PYCHPN ---
Psychiatric Progress Note - Psychiatric Progress Note Patient seen today, length of contact: 15 min Patient Chief Complaint: I was feeling down and depressed Problems Identified/Issues Discussed: Patient was seen and evaluated, chart reviewed and discussed the staff. As per staff patient remained isolative and withdrawn. He denies any auditory hallucinations or any paranoia. Patient reports some improvement in the depressed mood and reports some improvement in the feelings of hopelessness and helplessness. He also reports some improvement in the withdrawal but still reports nausea, cramps, and abdominal pain. He is taking medication but denies any side effects. Supportive therapy was given Medication Change: Yes Medical Record Reviewed: Yes Mental Status Examination - Cognitive Function Orientation: Person, Place, Situation, Time Memory: Intact Attention: WNL Concentration: Poor Association: WNL Fund of Knowledge: Poor - Mood Mood: Depressed, Anxious - Affect Affect: Constricted, Depressed - Speech Speech: Soft - Formal Thought Process Formal Thought Process: No Impairment - Suicidal Ideation Suicidal Ideation: No - Homicidal Ideation Homicidal Ideation: No Goal/Treatment Plan - Goal/Treatment Plan Need for Continued Stay: Remain at risks for inpatient hospitalization, Severe depression anxiety Progress Toward Problem(s) and Goals/Treatment Plan: Major depressive disorder recurrent severe without psychotic features Opioid use disorder severe Opioid withdrawal Alcohol use disorder severe Alcohol withdrawal CBT Psychoeducation Supportive therapy and group therapy immunotherapy Methadone for opioid withdrawal Ativan for alcohol withdrawal Neurontin for augmentation Remeron for depression Trazodone for sleep Hydroxyzine for anxiety Withdrawal medications for heroin including clonidine/Zofran/Imodium ec For alcohol folic acid/multivitamin/thiamine
[2018-03-26] MEDS: Multiple Vitamins Tab PO SCH (09:12)
--- NOTE | 2018-03-27 09:34 | PCM.BM ---
<VernonDebo Alonso - Last Filed: 03/27/18 09:34> Treatment Plan Problems - Problems identified on initial assessmt Suicidal Ideation Date Initiated: 03/18/18 Time Initiated: 23:00 Assessment reference: NA Status: Monitor Defensive Coping Date Initiated: 03/18/18 Time Initiated: 23:00 Assessment reference: NA Status: Active Hopelessness Date Initiated: 03/18/18 Time Initiated: 23:00 Assessment reference: NA Status: Active Treatment assets and liabiliti Patient Assests: cooperative, ADL independent, negotiates basic needs, cognitively intact Patient Liabilities: live alone, financial problems, poor support system, substance abuse (Hx of Heroin use and Alcohol use) - Milieu Protocol Maintain good personal hygiene: daily Encourage regular showers, daily Remind patient to perform daily oral care, every shift Assist patient to perform ADL's Conduct patient checks and document Observation sheet: Q15 minutes Maintain personal safety: every shift Educate patient to report safety concerns to staff, every shift Monitor environment for contraband/sharps Medication safety: Monitor for expected outcome, potential side effects: every shift, Assess barriers to learning: every shift, Assess readiness for medication education: every shift Milieu Narrative: Major depressive disorder recurrent severe without psychotic features Opioid use disorder severe Opioid withdrawal Alcohol use disorder severe Alcohol withdrawal CBT Psychoeducation Supportive therapy and group therapy immunotherapy Methadone for opioid withdrawal Ativan for alcohol withdrawal Neurontin for augmentation Remeron for depression Trazodone for sleep Hydroxyzine for anxiety Withdrawal medications for heroin including clonidine/Zofran/Imodium ec For alcohol folic acid/multivitamin/thiamine Family Contact Family involvement: Famliy/SO not involved - Goals for Treatment Patient goals for treatment: "I want to go to rehab." Discharge/Continuing Care - Education Needs Education Needs: Patient Medication, Patient Coping Skills, Patient Placement options, Patient Community resources - Discharge Discharge Criteria: Tolerates medication w/o severe side effects, No longer exhibiting s/s of withdrawal, Reduction of target symptoms Discharge to:: Substance Abuse Rehab - Treatment Team Participation Patient/Family/SO Statement: Major depressive disorder recurrent severe without psychotic features Opioid use disorder severe Opioid withdrawal Alcohol use disorder severe Alcohol withdrawal CBT Psychoeducation Supportive therapy and group therapy immunotherapy Methadone for opioid withdrawal Ativan for alcohol withdrawal Neurontin for augmentation Remeron for depression Trazodone for sleep Hydroxyzine for anxiety Withdrawal medications for heroin including clonidine/Zofran/Imodium ec For alcohol folic acid/multivitamin/thiamine Discussed with Family/SO: No Was Patient/Family/SO present at Treatment Team Meeting: Yes Treatment Plan Review - Problem Suicidal Ideation Time Initiated: 23:00 Defensive Coping Time Initiated: 23:00 Hopelessness Time Initiated: 23:00 - Discharge / Continuing Care Discharge to:: Substance Abuse Rehab Behavioral Health Services: Residential treatment Health Needs: Medications/Rx, Alcohol/Drug treatment <Lexus Alvarez - Last Filed: 03/27/18 15:16> - Milieu Protocol Maintain good personal hygiene: daily Encourage regular showers, daily Remind patient to perform daily oral care, daily Assist patient to perform ADL's Conduct patient checks and document Observation sheet: Q15 minutes Maintain personal safety: every shift Educate patient to report safety concerns to staff, every shift Monitor environment for contraband/sharps Medication safety: Monitor for expected outcome, potential side effects: every shift, Assess barriers to learning: every shift, Assess readiness for medication education: every shift Treatment Plan Review - Problem Suicidal Ideation Progress toward outcomes: improved Defensive Coping Progress toward outcomes: improved Hopelessness Progress toward outcomes: improved
[2018-03-27] MEDS: Multiple Vitamins Tab PO SCH (09:42)
[2018-03-28 06:50] VITALS: BP 120/80; PULSE 86; RESP 20; TEMP 98.4
--- NOTE | 2018-03-28 09:51 | PCM.PYCHDC ---
Mental Status Examination - Mental Status Examination Orientation: Person, Place, Situation, Time Memory: Intact Mood: Neutral Affect: Constricted Speech: Soft Attention: WNL Concentration: WNL Association: WNL Fund of Knowledge: WNL Formal Thought Process: No Impairment Description of patient's judgement and insight: good, fair Psychotic Thoughts and Behaviors: denies any AVH Suicidal Ideation: No Current Homicidal Ideation?: No Discharge Summary - Discharge Note Reason for Hospitalization: Patient is a 56 year old male that presented to the [facility] ED on 03/18 and was admitted to the [facility] psychiatric unit for depression with suicidal ideation. Patient denies any previous history of psychiatric illness but was previously psychiatrically hospitalized here for evaluation of depression and substance abuse. On examination the patient appears anxious but is open to questioning. Patient reports that he has been abusing increasing amount of heroin that is making him more depressed. He uses 12-25 bags of heroin a day, which he started at the age of 17. Patient drinks a 12 pack of beer daily, with quantities ranging from 12 to 24 ounces, and that his last drink was on 03/18 when he drank five 24 ounce beers. Patient also smokes a pack of cigarettes a day and has done so for many years. Patient is currently single and lives with friends. He has been unemployed since last november. He reports depressed mood, at times feelings of hopelessness and helplessness. He also reports poor sleep and poor appetite. However he denies any auditory or visual hallucinations or any paranoia. He reports anxiety but denies any panic attacks or any racing thoughts. Consultations:: List each consultation separately and include: 1. Reason for request. 2. Findings. 3. Follow-up Summary of Hospital Course include:: 1. Description of specific treatment plan utilized for patients during their course of treatmen. 2. Summarize the time- course for resolution of acute symptoms and/or regressed behaviors. 3. Describe issues identified and worked on during hospitalization. 4. Describe medication utilized. 5. Describe medical problems identified and treated. 6. Reassessment of suicide risk Summary of Hospital Course: Patient is a 56 year old male that presented to the [facility] ED on 03/18 and was admitted to the [facility] psychiatric unit for depression with suicidal ideation. Patient denies any previous history of psychiatric illness but was previously psychiatrically hospitalized here for evaluation of depression and substance abuse. On examination the patient appears anxious but is open to questioning. Patient reports that he has been abusing increasing amount of heroin that is making him more depressed. He uses 12-25 bags of heroin a day, which he started at the age of 17. Patient drinks a 12 pack of beer daily, with quantities ranging from 12 to 24 ounces, and that his last drink was on 03/18 when he drank five 24 ounce beers. Patient also smokes a pack of cigarettes a day and has done so for many years. Patient is currently single and lives with friends. He has been unemployed since last november. He reports depressed mood, at times feelings of hopelessness and helplessness. He also reports poor sleep and poor appetite. However he denies any auditory or visual hallucinations or any paranoia. He reports anxiety but denies any panic attacks or any racing thoughts. Past medical history - Diagnosis (1) Major depressive disorder, recurrent, unspecified Current Visit: Yes Status: Acute (2) Alcohol use disorder, severe, dependence Current Visit: No Status: Acute (3) Opioid dependence Current Visit: Yes Status: Acute - Final Diagnosis (DSM 5) Condition upon Discharge: GUARDED DSM 5: Major depressive disorder recurrent severe without psychotic features Opioid use disorder severe Opioid withdrawal Alcohol use disorder severe Alcohol withdrawal Disposition: HOME/ ROUTINE Follow-up Treatment Plan: Major depressive disorder recurrent severe without psychotic features Opioid use disorder severe Opioid withdrawal Alcohol use disorder severe Alcohol withdrawal CBT Psychoeducation Supportive therapy and group therapy immunotherapy Methadone for opioid withdrawal Ativan for alcohol withdrawal Neurontin for augmentation Remeron for depression Trazodone for sleep Hydroxyzine for anxiety Withdrawal medications for heroin including clonidine/Zofran/Imodium ec For alcohol folic acid/multivitamin/thiamine Prescriptions/Medication Reconciliation: Gabapentin [Neurontin] 400 mg PO BID #60 cap Mirtazapine [Remeron] 45 mg PO HS #30 tab traZODone [Desyrel] 100 mg PO HS #60 tab - Smoking Cessation Smoking Cessation Medication prescribed: No - Antipsychotic Medications Pt discharged on 2 or more routine antipsychotic medications: No
[2018-03-28] MEDS: Multiple Vitamins Tab PO SCH (10:06)
== END 2018-03-28 11:00 | disposition home or self-care (01) | DRG 430 ==
LOC: C.ER 16:30 → C.5E 21:14
PROVIDERS: ADMIT Psychiatry & Neurology Psychiatry; ATTEND Psychiatry & Neurology Psychiatry
PROC: GZ3ZZZZ Medication Management (ICD-10-PCS; principal; 2018-03-18)
PROC: HZ86ZZZ Medication Management for Substance Abuse Treatment, Clonidine (ICD-10-PCS; 2018-03-18)
PROC: HZ81ZZZ Medication Management for Substance Abuse Treatment, Methadone Maintenance (ICD-10-PCS; 2018-03-18)
PROC: GZHZZZZ Group Psychotherapy (ICD-10-PCS; 2018-03-18)
PROC: GZ56ZZZ Individual Psychotherapy, Supportive (ICD-10-PCS; 2018-03-18)
DX: F33.2 Major depressive disorder, recurrent severe without psychotic features (principal); F11.23 Opioid dependence with withdrawal; F10.239 Alcohol dependence with withdrawal, unspecified; R45.851 Suicidal ideations; F17.210 Nicotine dependence, cigarettes, uncomplicated; F41.9 Anxiety disorder, unspecified; B18.2 Chronic viral hepatitis C; M19.90 Unspecified osteoarthritis, unspecified site; Y90.3 Blood alcohol level of 60-79 mg/100 ml

== ENCOUNTER 2018-04-08 08:17 | Inpatient (IN) | payer OTHER ==
[2018-04-08 08:17] VITALS: BMI 28.9
[2018-04-08 09:44] LABS: BASO # 0.1 K/uL (0.0-0.2); BASO % 1.3 % (0.0-2.0); EOS # 0.1 K/uL (0.0-0.7); EOS % 3.1 % (0.0-4.0); HEMOGLOBIN 14.5 g/dL (12.0-18.0); LYMPH # 1.3 K/uL (1.0-4.3); LYMPH % 31.6 % (20.0-40.0); MEAN CELL VOLUME 95.7 fL (80.0-94.0); MEAN CORPUSCULAR HEMOGLOBIN 31.8 pg (27.0-31.0); MEAN CORPUSCULAR HGB CONC 33.3 g/dL (33.0-37.0); MEAN PLATELET VOLUME 9.7 fL (7.2-11.7); MONO # 0.8 K/uL (0.0-0.8); MONO % 18.6 % (0.0-10.0); NEUT # 1.9 K/uL (1.8-7.0); NEUT % 45.4 % (50.0-75.0); NRBC % 0.1 % (0.0-2.0); RBC 4.54 Mil/uL (4.40-5.90); RED CELL DISTRIBUTION WIDTH 13.3 % (11.5-14.5); WHITE BLOOD COUNT 4.1 K/uL (4.8-10.8)
[2018-04-08 09:49] LABS: URINE BILIRUBIN NEGATIVE (NEGATIVE); URINE BLOOD NEGATIVE (NEGATIVE); URINE CLARITY Hazy (Clear); URINE COLOR Yellow (YELLOW); URINE GLUCOSE (UA) NORMAL (Normal); URINE LEUKOCYTE ESTERASE NEG Leu/uL (Negative); URINE PROTEIN NEGATIVE (NEGATIVE)
[2018-04-08 09:57] LABS: ALB/GLOB RATIO 1.4 (1.0-2.1); ALBUMIN 4.3 g/dL (3.5-5.0); ALT/SGPT 87 U/L (21-72); AST/SGOT 85 U/L (17-59); BLOOD UREA NITROGEN 12 mg/dL (9-20); CALCIUM 9.9 mg/dl (8.6-10.4); GFR NON-AFRICAN AMERICAN > 60
[2018-04-08 10:12] LABS: BARBITURATES, UR NEGATIVE (NEGATIVE); BENZODIAZEPINES, UR NEGATIVE (NEGATIVE); PHENCYCLIDINE, UR NEGATIVE (NEGATIVE)
[2018-04-08 10:29] LABS: OPIATES, UR POSITIVE (NEGATIVE)
--- NOTE | 2018-04-08 10:38 | C.PDOC ---
History Of Present Illness 52 year old male, whose past medical history includes opioid abuse (last use yesterday), presents to the ED for psychiatric evaluation. Patient states he has been feeling depressed and suicidal and reports suicidal plan of overdosing. Patient has history of similar presentation in the past, and he was last admitted one week ago. Patient denies any active physical complaints, or homicidal ideation at this time. Time Seen by Provider: 04/08/18 08:37 Chief Complaint (Nursing): Psychiatric Evaluation History Per: Patient History/Exam Limitations: no limitations Onset/Duration Of Symptoms: Hrs Current Symptoms Are (Timing): Still Present Modifying Factor(s): Other (opioid) Associated Symptoms: Depression, Suicidal Thoughts, Suicidal Plan Involuntary Hold By: None Recent travel outside of the [place]: No Additional History Per: Patient Past Medical History Reviewed: Historical Data, Nursing Documentation, Vital Signs Vital Signs: Last Vital Signs Temp 97.5 F L 04/08/18 08:27 Pulse 67 04/08/18 08:27 Resp 18 04/08/18 08:27 BP 118/87 04/08/18 08:27 Pulse Ox 98 04/08/18 08:27 - Medical History PMH: Anxiety, Arthritis, Depression, Hepatitis (C (untreated)) Denies: Diabetes, HIV (Tested negative), HTN, Chronic Kidney Disease, Seizures, Sexually Transmitted Disease Surgical History: No Surg Hx - [facility] DETOXIFICATION SERVICES FOR SUBSTANCE ABUSE TREATMENT (12/12/17) GROUP NATURAL RESOURCE TECHNICIAN FOR SUBSTANCE ABUSE TREATMENT, PSYCHOEDUCATION (12/12/17) GROUP PSYCHOTHERAPY (03/18/18) INDIV PSYCHOTHERAPY FOR SUBSTANCE ABUSE TREATMENT, SUPPORT (12/12/17) INDIV PSYCHOTHERAPY FOR SUBSTANCE ABUSE, COGNITIV BEHAVIORAL (04/22/16) INDIV PSYCHOTHERAPY FOR SUBSTANCE ABUSE, PSYCHOEDUCATION (04/22/16) INDIVIDUAL PSYCHOTHERAPY, SUPPORTIVE (03/18/18) INJECT/INFUSE NEC (12/12/13) MEDICATION MANAGEMENT (03/18/18) MEDS MGMT FOR SUBSTANCE ABUSE TREATMENT, CLONIDINE (03/18/18) MEDS MGMT FOR SUBSTANCE ABUSE TREATMENT, METHADONE MAINT (03/18/18) MEDS MGMT FOR SUBSTANCE ABUSE TREATMENT, NICOTINE REPLACE (12/12/17) Family History: States: Unknown Family Hx - Social History Hx Tobacco Use: No (1ppd) Hx Alcohol Use: Yes Hx Substance Use: Yes - Immunization History Hx Tetanus Toxoid Vaccination: No Hx Influenza Vaccination: No Hx Pneumococcal Vaccination: No Review Of Systems Constitutional: Negative for: Fever, Chills Cardiovascular: Negative for: Chest Pain, Palpitations Respiratory: Negative for: Cough, Shortness of Breath Gastrointestinal: Negative for: Nausea, Vomiting Neurological: Negative for: Weakness, Numbness Psych: Positive for: Depression, Suicidal ideation (plan of overdosing ) Physical Exam - Physical Exam Appears: Non-toxic, No Acute Distress Skin: Normal Color, Warm, Dry Head: Atraumatic, Normacephalic Eye(s): bilateral: Normal Inspection Oral Mucosa: Moist Neck: Supple Chest: Symmetrical, No Deformity, No Tenderness Cardiovascular: Rhythm Regular, No Murmur Respiratory: Normal Breath Sounds, No Rales, No Rhonchi, No Wheezing Extremity: Normal ROM, Capillary Refill (less than 2 seconds ) Neurological/Psych: Oriented x3, Normal Speech, Normal Cognition ED Course And Treatment - Laboratory Results Result Diagrams: 04/08/18 09:30 04/08/18 09:30 Lab Results: Total Bilirubin 1.1 mg/dL (0.2-1.3) 04/08/18 09:30 AST 85 U/L (17-59) H D 04/08/18 09:30 ALT 87 U/L (21-72) H D 04/08/18 09:30 Alkaline Phosphatase 102 U/L (38-126) 04/08/18 09:30 Total Protein 7.5 g/dL (6.3-8.3) 04/08/18 09:30 Albumin 4.3 g/dL (3.5-5.0) 04/08/18:30 Globulin 3.2 gm/dL (2.2-3.9) 04/08/18 09:30 Albumin/Globulin Ratio 1.4 (1.0-2.1) 04/08/18:30 Urine Color Yellow (YELLOW) 04/08/18:30 Urine Clarity Hazy (Clear) 04/08/18 09:30 Urine pH 5.0 (5.0-8.0) 04/08/18 09:30 Ur Specific [place] 1.019 (1.003-1.030) 04/08/18:30 Urine Protein Negative mg/dL (NEGATIVE) 04/08/18:30 Urine Glucose (UA) Normal mg/dL (Normal) 04/08/18 09:30 Urine Ketones Negative mg/dL (NEGATIVE) 04/08/18 09:30 Urine Blood Negative (NEGATIVE) 04/08/18 09:30 Urine Nitrate Negative (NEGATIVE) 04/08/18 09:30 Urine Bilirubin Negative (NEGATIVE) 04/08/18 09:30 Urine Urobilinogen 4.0 mg/dL (0.2-1.0) 04/08/18 09:30 Ur Leukocyte Esterase Neg Willie/uL (Negative) 04/08/18 09:30 Urine WBC (Auto) < 1 /hpf (0-5) 04/08/18 09:30 Lab Interpretation: Normal O2 Sat by Pulse Oximetry: 98 Pulse Ox Interpretation: Normal Progress Note: Bloodwork and urinalysis ordered and reviewed. Patient will be evaluated by shoddy mill worker. Blood work review and appears normal. PES evaluated patient, case discussed with and admission with Dx: missy depression, suicidal, opioid dependence arranged Disposition - Disposition Disposition: HOSPITALIZED Disposition Time: 10:58 Condition: STABLE Forms: [facility] (Icelandic) - Clinical Impression Clinical Impression: Opioid dependence, Moderate major depression, single episode
--- NOTE | 2018-04-08 12:12 | PCM.BM ---
<Shabana Anaya - Last Filed: 04/08/18 12:09> Treatment Plan Problems - Problems identified on initial assessmt Self Care Deficit Date Initiated: 04/08/18 Time Initiated: 12:11 Assessment reference: NA Status: Active Feelings of Worthlessness Date Initiated: 04/08/18 Time Initiated: 12:11 Assessment reference: NA Status: Active Medication Nonadherence Date Initiated: 04/08/18 Time Initiated: 12:11 Assessment reference: NA Status: Active Treatment assets and liabiliti Patient Assests: cooperative, ADL independent, negotiates basic needs, cogniti vely intact Patient Liabilities: live alone, financial problems, substance abuse (Opiates), medical problems (Hep C) - Milieu Protocol Maintain good personal hygiene: daily Encourage regular showers, daily Remind patient to perform daily oral care, daily Assist patient to perform ADL's Conduct patient checks and document Observation sheet: Q15 minutes (Safety) Maintain personal safety: every shift Educate patient to report safety concerns to staff, every shift Monitor environment for contraband/sharps Medication safety: Monitor for expected outcome, potential side effects: every shift, Assess barriers to learning: every shift, Assess readiness for medication education: every shift <Josephine Bcek - Last Filed: 04/10/18 15:06> Family Contact Family involvement: Patient does not wish Family/SO involvement Family contact: Patient declines to allow family contact at present - Goals for Treatment Patient goals for treatment: "I want to go to rehab program." Discharge/Continuing Care - Education Needs Education Needs: Patient Medication, Patient Diagnosis/Disease Process, Patient Coping Skills, Patient Placement options, Patient Community resources - Discharge Discharge Criteria: Free of Suicidal thoughts, Normal sleep pattern, Ability to care for self, No longer exhibiting s/s of withdrawal, Reduction of target symptoms Discharge to:: Substance Abuse Rehab - Treatment Team Participation Discussed with Family/SO: No Was Patient/Family/SO present at Treatment Team Meeting: Yes <Suzie Marsh - Last Filed: 04/15/18 13:39> - Diagnosis (1) MDD (major depressive disorder) Status: Acute Interventions: 04/15/18 13:39 * Assess/adjust medications daily and /or as needed * See patient on an individual basis 7x/week to assess symptoms of depression * Monitor for side effects & effectiveness of medications * (2) Opioid dependence Status: Acute Interventions: 04/15/18 13:39 * Assess 7x/week regarding severity of withdrawal * Educate regarding risks, benefits, side effects and alternatives of medications * Use Motivational Interviewing for abstinence * Use CBT for relapse prevention * Medication management for withdrawal symptoms * Encourage medication assisted treatment *
[2018-04-08] MEDS ORDERED: Aluminum Hydroxide/Magnesium Hydroxide Susp (30 mL) PO PRN (13:11)
--- NOTE | 2018-04-08 13:11 | PCM.PSYCH ---
Initial Psychiatric Evaluation - Initial Psychiatric Evaluation Type of Admission: Voluntary Legal Status: Capacity Chief Complaint (in patient's own words): I relapsed on heroin History of Present Illness and Precipitating Events: Patient is a 52 year old single white male self referred for feeling depressed and having suicidal thoughts with a plan to overdose on drugs. Patient was discharged from [facility] on March 28, 2018 and was supposed to follow up with the [facility], however stated that he never showed up because on the way his father who was taking him got a "flat tire". Patient then stated that he's really depressed and wants to hurt himself. Patient said he's suicidal with a plan to overdose, however never attempted suicide. Patient then explained that he uses about 12-15 bags of heroin daily snorting and he's starting to withdraw. Patient currently admitted to suicidal ideations with a plan to overdose on heroin, however denied any homicidal ideations along with auditory/visual hallucinations. Patient appeared annoyed and superfically cooperative at the time of assessment. Patient currently admitted to suicidal ideations wiht a plan to overdose on drug, however denied any homicidal ideations along with auditory/visual hallucinations. Patient appears to be non treamtent compliant as exhibited by him being discharged 03/28/2018 from [facility] with follow up treatment and him never making it there. Patient also appears to be non medication compliant as exhibited by him not knowing what medications he was given during treatment or after being discharged. Patient further appear to be abusing as heroin as Patient stated that he's using same and was positive for opioids. Patient appears to be a poor historian and using the hospital for secondary gain as exhibited by lack of knowledge to his treatment and follow up and what appeared a demand to be admitted as Patient stated "I need to got to the psych [facility] or something". [ End ] Current Medications: Active Medications Generic Name Dose Route Start Last Admin Trade Name Freq PRN Reason Stop Dose Admin Influenza Virus Vaccine 60 mcg 04/11/18 10:00 Flucelvax Quad [id number] Syr IM 04/11/18 10:01 .ONCE ONE Pneumococcal Polyvalent Vaccine 0.5 ml 04/11/18 10:00 Pneumovax 23 Vaccine IM 04/11/18 10:01 .ONCE ONE Past Psychiatric History - Past Psychiatric History Previous Treatment History: Inpatient Pertinent Medical Hx (Current Medical&Sleep Prob, Allergies): Allergies Allergy/AdvReac Type Severity Reaction Status Date / Time No Known Allergies Allergy Verified 02/06/18 00:31 No Known Home Med 04/08/18 Review of Systems - Review of Systems All systems: reviewed and no additional remarkable complaints except - Psychiatric Psychiatric: Anxiety, Irritability, Suicidal Ideation Mental Status Examination - Personal Presentation Personal Presentation: Looks stated age - Affect Affect: Constricted, Depressed - Motor Activity Motor Activity: Calm - Reliability in Providing Information Reliability in Providing Information: Fair - Speech Speech: Organized - Mood Mood: Depressed, Anxious - Formal Thought Process Formal Thought Process: No Impairment - Obsessions/Compulsions Obsessions: No Compulsions: No - Cognitive Functions Orientation: Person, Place, Situation, Time Sensorium: Alert Attention/Concentration: Attentive Abstract Thinking: [place] Estimate of Intelligence: Below average Judgement: Imparied, as evidence by: Poor judgement, Imparied, as evidence by: Lack of insight into illness - Risk Risk: Suicidal, Withdrawal, Diminished functioning - Limitations Limitations: Living alone DSM 5 DX - DSM 5 DSM 5 Diagnosis: Major depressive disorder recurrent severe without psychotic features Opioid use disorder severe Opioid withdrawal Alcohol use disorder severe - Recommended/Plan of Treatment Treatment Recommendations and Plan of Treatment: Major depressive disorder recurrent severe without psychotic features Opioid use disorder severe Opioid withdrawal Alcohol use disorder severe -CBT -Psychoeducation -Supportive therapy and group therapy immunotherapy -Methadone taper for opioid withdrawal -Neurontin for augmentation -Paxil for depression -Trazodone for sleep -Hydroxyzine for anxiety -Withdrawal medications for heroin including clonidine/Zofran/Imodium - Smoking Cessation Smoking Cessation Initiated: No
--- NOTE | 2018-04-09 13:56 | PCM.PYCHPN ---
Psychiatric Progress Note - Psychiatric Progress Note Patient seen today, length of contact: 15 min Patient Chief Complaint: I m feeling depressed. Problems Identified/Issues Discussed: Patient was seen and evaluated, chart reviewed and discussed the staff. He still reports depressed mood but reports improvement in the feelings of hopelessness and helplessness. He still reports poor sleep and asking for stronger medication. Patient still reports withdrawal symptoms from drinking including nausea, vomiting, shakes, anxiety, headaches and cramps. He denies any auditory or visual hallucinations or any paranoia. He is taking medication but denies any side effects. Supportive therapy was given. Medication Change: Yes Medical Record Reviewed: Yes Mental Status Examination - Cognitive Function Orientation: Person, Place, Situation, Time Memory: Intact Attention: WNL Concentration: Poor Association: WNL Fund of Knowledge: Poor - Mood Mood: Depressed, Anxious - Affect Affect: Constricted, Depressed - Speech Speech: Soft - Formal Thought Process Formal Thought Process: No Impairment - Suicidal Ideation Suicidal Ideation: No - Homicidal Ideation Homicidal Ideation: No Goal/Treatment Plan - Goal/Treatment Plan Need for Continued Stay: Remain at risks for inpatient hospitalization Progress Toward Problem(s) and Goals/Treatment Plan: Major depressive disorder recurrent severe without psychotic features Opioid use disorder severe Opioid withdrawal Alcohol use disorder severe -CBT -Psychoeducation -Supportive therapy and group therapy immunotherapy -Methadone taper for opioid withdrawal -Neurontin for augmentation -Paxil for depression -Trazodone for sleep -Hydroxyzine for anxiety -Withdrawal medications for heroin including clonidine/Zofran/Imodium
[2018-04-11] MEDS ORDERED: Pneumococcal 23-Valent Vaccine IM ONE (10:00)
[2018-04-11] MEDS ORDERED: Influenza Vaccine 60 mcg/0.5 mL SYR (4YR UP) IM ONE (10:00)
--- NOTE | 2018-04-13 23:04 | PCM.PYCHPN ---
Psychiatric Progress Note - Psychiatric Progress Note Patient seen today, length of contact: 15 min Patient Chief Complaint: I am feeling better. Problems Identified/Issues Discussed: Patient seen, chart reviewed, case discussed with the staff. Issues related to illness and treatment were discussed with the patient and staff. Reported compliant with treatment with no adverse effects. Tolerating treatment very well. Mood reported as okay. Affect appropriate. Patient reported feeling little better as patient still has some withdrawal symptoms including anxiety, headache and body aches. Initially staff reported that patient was irritable. Aftercare discussed with the patient. Patient denied any delusions, auditory or visual hallucinations, no suicidal ideations or homicidal ideations at the time of evaluation Medical Problems: None reported Diagnostic Results: Reviewed DSM 5 Symptoms Update: Some improvement with treatment Medication Change: No Medical Record Reviewed: Yes Mental Status Examination - Cognitive Function Orientation: Person, Place, Situation, Time Memory: Intact Attention: WNL Concentration: WNL Association: [facility] Fund of Knowledge: [facility] Decription of patient's judgement and insights: Fair - Mood Mood: Neutral - Affect Affect: Depressed - Speech Speech: Soft - Formal Thought Process Formal Thought Process: No Impairment Psychotic Thoughts and Behaviors: None - Suicidal Ideation Suicidal Ideation: No - Homicidal Ideation Homicidal Ideation: No Goal/Treatment Plan - Goal/Treatment Plan Need for Continued Stay: Remain at risks for inpatient hospitalization, Discharge may exacerbated symptoms, Severe functional impairment Progress Toward Problem(s) and Goals/Treatment Plan: Patient education. Supportive therapy. CBT for relapse prevention. RI for abstinence. Continue treatment as before. [facility] after discharge from the hospital. Estimated Date of D/C: 04/15/18 - Smoking Cessation Smoking Cessation Initiated: No
[2018-04-15 06:54] VITALS: RESP 20; TEMP 97.9; O2SAT 98
--- NOTE | 2018-04-15 13:38 | PCM.PYCHPN ---
Psychiatric Progress Note - Psychiatric Progress Note Patient seen today, length of contact: 15 min Patient Chief Complaint: I m feeling depressed. Problems Identified/Issues Discussed: Patient was seen and evaluated, chart reviewed and discussed the staff. He still reports depressed mood but reports improvement in the feelings of hopelessness and helplessness. He still reports poor sleep and asking for stronger medication. Patient still reports withdrawal symptoms from drinking including nausea, vomiting, shakes, anxiety, headaches and cramps. He denies any auditory or visual hallucinations or any paranoia. He is taking medication but denies any side effects. Supportive therapy was given. Medication Change: No Medical Record Reviewed: Yes Mental Status Examination - Cognitive Function Orientation: Person, Place, Situation, Time Memory: Intact Attention: WNL Concentration: WNL Association: WNL Fund of Knowledge: WNL - Mood Mood: Neutral - Affect Affect: Depressed - Speech Speech: Soft - Formal Thought Process Formal Thought Process: No Impairment - Suicidal Ideation Suicidal Ideation: No - Homicidal Ideation Homicidal Ideation: No Goal/Treatment Plan - Goal/Treatment Plan Need for Continued Stay: Remain at risks for inpatient hospitalization, Discharge may exacerbated symptoms, Severe functional impairment Progress Toward Problem(s) and Goals/Treatment Plan: Major depressive disorder recurrent severe without psychotic features Opioid use disorder severe Opioid withdrawal Alcohol use disorder severe -CBT -Psychoeducation -Supportive therapy and group therapy immunotherapy -Methadone taper for opioid withdrawal -Neurontin for augmentation -Paxil for depression -Trazodone for sleep -Hydroxyzine for anxiety -Withdrawal medications for heroin including clonidine/Zofran/Imodium Estimated Date of D/C: 04/15/18
--- NOTE | 2018-04-15 17:57 | RAD ---
Date of service: 04/15/2018 HISTORY: Remy got the rehab COMPARISON: No prior. FINDINGS: LUNGS: No active pulmonary disease. PLEURA: No significant pleural effusion identified, no pneumothorax apparent. CARDIOVASCULAR: No atherosclerotic calcification present Normal. OSSEOUS STRUCTURES: No significant abnormalities. VISUALIZED UPPER ABDOMEN: Normal. OTHER FINDINGS: None. IMPRESSION: No active disease.
--- NOTE | 2018-04-16 09:39 | PCM.PYCHDC ---
Mental Status Examination - Mental Status Examination Orientation: Person, Place, Situation, Time Memory: Intact Mood: Neutral Affect: Constricted Speech: Soft Attention: WNL Concentration: WNL Association: WNL Fund of Knowledge: WNL Formal Thought Process: No Impairment Description of patient's judgement and insight: good, fair Psychotic Thoughts and Behaviors: denies any AVH Suicidal Ideation: No Current Homicidal Ideation?: No Discharge Summary - Discharge Note Consultations:: List each consultation separately and include: 1. Reason for request. 2. Findings. 3. Follow-up Summary of Hospital Course include:: 1. Description of specific treatment plan utilized for patients during their course of treatmen. 2. Summarize the time- course for resolution of acute symptoms and/or regressed behaviors. 3. Describe issues identified and worked on during hospitalization. 4. Describe medication utilized. 5. Describe medical problems identified and treated. 6. Reassessment of suicide risk Summary of Hospital Course: Patient is a 52 year old single white male self referred for feeling depressed and having suicidal thoughts with a plan to overdose on drugs. Patient was discharged from [facility] [place] on March 28, 2018 and was supposed to follow up with the [facility] [employer] [facility], however stated that he never showed up because on the way his father who was taking him got a "flat tire". Patient then stated that he's really depressed and wants to hurt himself. Patient said he's suicidal with a plan to overdose, however never attempted suicide. Patient then explained that he uses about 12-15 bags of heroin daily snorting and he's starting to withdraw. Patient currently admitted to suicidal ideations with a plan to overdose on heroin, however denied any homicidal ideations along with auditory/visual hallucinations. Patient appeared annoyed and superfically cooperative at the time of assessment. Patient currently admitted to suicidal ideations wiht a plan to overdose on drug, however denied any homicidal ideations along with auditory/visual halluci nations. Patient appears to be non treamtent compliant as exhibited by him being discharged 03/28/2018 from [facility] [place] with follow up treatment and him never making it there. Patient also appears to be non medication compliant as exhibited by him not knowing what medications he was given during treatment or after being discharged. Patient further appear to be abusing as heroin as Patient stated that he's using same and was positive for opioids. Patient appears to be a poor historian and using the hospital for secondary gain as exhibited by lack of knowledge to his treatment and follow up and what appeared a demand to be admitted as Patient stated "I need to got to the psych [facility] or something". [ End ] - Diagnosis (1) MDD (major depressive disorder) Current Visit: Yes Status: Acute (2) Opioid dependence Current Visit: Yes Status: Acute - Final Diagnosis (DSM 5) Condition upon Discharge: STABLE DSM 5: Major depressive disorder recurrent severe without psychotic features Opioid use disorder severe Opioid withdrawal Alcohol use disorder severe Disposition: HOME/ ROUTINE Follow-up Treatment Plan: Major depressive disorder recurrent severe without psychotic features Opioid use disorder severe Opioid withdrawal Alcohol use disorder severe Prescriptions/Medication Reconciliation: Gabapentin [Neurontin] 300 mg PO BID #60 cap PARoxetine [Paxil] 20 mg PO DAILY #30 tab traZODone [Desyrel] 50 mg PO HS #30 tab - Smoking Cessation Smoking Cessation Medication prescribed: No - Antipsychotic Medications Pt discharged on 2 or more routine antipsychotic medications: No
[2018-04-16 10:20] VITALS: BP 133/85; PULSE 74
== END 2018-04-16 15:03 | disposition home or self-care (01) | DRG 750 ==
LOC: C.ER 08:17 → C.5E 11:00
PROVIDERS: ADMIT Psychiatry & Neurology Psychiatry; ATTEND Psychiatry & Neurology Psychiatry
PROC: HZ2ZZZZ Detoxification Services for Substance Abuse Treatment (ICD-10-PCS; principal; 2018-04-08)
PROC: HZ52ZZZ Individual Psychotherapy for Substance Abuse Treatment, Cognitive-Behavioral (ICD-10-PCS; 2018-04-08)
PROC: HZ59ZZZ Individual Psychotherapy for Substance Abuse Treatment, Supportive (ICD-10-PCS; 2018-04-08)
PROC: HZ56ZZZ Individual Psychotherapy for Substance Abuse Treatment, Psychoeducation (ICD-10-PCS; 2018-04-08)
PROC: HZ42ZZZ Group Counseling for Substance Abuse Treatment, Cognitive-Behavioral (ICD-10-PCS; 2018-04-08)
PROC: HZ46ZZZ Group Counseling for Substance Abuse Treatment, Psychoeducation (ICD-10-PCS; 2018-04-08)
PROC: GZHZZZZ Group Psychotherapy (ICD-10-PCS; 2018-04-08)
PROC: GZ58ZZZ Individual Psychotherapy, Cognitive-Behavioral (ICD-10-PCS; 2018-04-08)
PROC: GZ56ZZZ Individual Psychotherapy, Supportive (ICD-10-PCS; 2018-04-08)
DX: F10.230 Alcohol dependence with withdrawal, uncomplicated (principal); F33.2 Major depressive disorder, recurrent severe without psychotic features; B19.20 Unspecified viral hepatitis C without hepatic coma; N18.9 Chronic kidney disease, unspecified; F10.20 Alcohol dependence, uncomplicated; Y90.0 Blood alcohol level of less than 20 mg/100 ml; R45.851 Suicidal ideations; F41.9 Anxiety disorder, unspecified; M19.90 Unspecified osteoarthritis, unspecified site; I12.9 Hypertensive chronic kidney disease with stage 1 through stage 4 chronic kidney disease, or unspecified chronic kidney disease